=== PATIENT | female | born 1960 | race Caucasian/White ===

== ENCOUNTER 2016-11-24 16:27 | Inpatient (IN) | payer OTHER ==
[~2016-11-24] VITALS: Ht 157.5 cm; Wt 75.7 kg
[~2016-11-24 16:27] MED LIST: ALBU18HF2 IH; ATOR10TA PO; DOCU-270 PO; FERR1TAB44 PO; LITH300C4 PO
--- NOTE | 2016-11-24 16:31 | NUR ---
BIBRA FROM STREET DT CONSTIPATION "I HAS 2 BM TODAY BUT VERY SMALL", NAD NOTE, VSS, WAITING FOR MD FISHER.
[2016-11-24] MEDS ORDERED: TRAMADOL HCL 50 MG TABLET PO ONE (17:30)
[2016-11-24 17:40] LABS: HEMATOCRIT 27 % (33-45); HEMOGLOBIN 9.4 g/dL (11.5-14.8); MEAN CORPUSCULAR HEMOGLOBIN 36 PG (26.0-33.0); MEAN CORPUSCULAR HGB CONC 35 g/dl (31.0-36.0); MEAN CORPUSCULAR VOLUME 105 fL (82-100); PLATELET COUNT (AUTO) 166 /CMM (150-450); RED BLOOD CELL COUNT(AUTO) 2.58 MIL/uL (4.0-5.2); WHITE BLOOD COUNT (AUTO) 11.4 K/uL (4.3-11.0)
[2016-11-24 17:47] LABS: ALBUMIN 1.8 g/dL (3.4-5.0); BILIRUBIN,DIRECT 20.4 mg/dL (0.0-0.2); CALCIUM, SERUM 7.8 mg/dL (8.5-10.1); CREATININE 0.5 mg/dL (0.6-1.3); TOTAL PROTEIN, SERUM 5.3 g/dL (6.4-8.2)
[2016-11-24 17:49] LABS: INR 1.57 (0.87-1.13); PROTHROMBIN TIME 16.3 SECS (9.5-12.7)
[2016-11-24 18:00] LABS: APPEARANCE,URINE Slightly Cloudy (CLEAR); BILIRUBIN,URINE LARGE (NEGATIVE); BLOOD, URINE Negative Ery/uL (NEGATIVE); COLOR,URINE Brown (YELLOW); KETONES,URINE 15 (NEGATIVE); LEUKOCYTE ESTERASE ,URINE Negative (NEGATIVE); NITRITE, URINE Negative (NEGATIVE); PROTEIN,URINE 100 mg/dl (NEGATIVE); UGLUCOSE 100 MG/DL mg/dL (NEGATIVE)
[2016-11-24 18:04] LABS: POTASSIUM 2.2 mmol/L (3.5-5.1)
[2016-11-24] MEDS ORDERED: TRAMADOL HCL 50 MG TABLET ONE (18:23)
[2016-11-24] MEDS ORDERED: POTASSIUM CHLORIDE 20 MEQ TAB.PRT.SR PO ONE ×2 (18:23→18:30)
[2016-11-24] MEDS ORDERED: IV NS 0.9% 1,000 ML BAG IV ONE (18:30)
[2016-11-24 19:02] LABS: BAND % (MANUAL) 2 % (0.0-5.0); LYMPHOCYTES % (MANUAL) 10 % (16-48); MONOCYTES % (MANUAL) 2 % (0-11.0); NEUTROPHILS % (MANUAL) 86 (42-76)
--- NOTE | 2016-11-24 19:04 | NUR ---
US LIVER AT BS
[2016-11-24 19:05] LABS: BACTERIA,URINE Few /HPF (None Seen); RBC,URINE 0-2 /HPF (0-2); SQUAMOUS EPITHELIAL CELL,UR Moderate /HPF (None Seen); WBC,URINE 0-2 /HPF (0-3); YEAST,URINE Few /HPF (None Seen)
[2016-11-24 19:06] LABS: HYALINE CASTS, URINE Moderate /LPF (None Seen)
[2016-11-24] MEDS ORDERED: IV PREMIX 0.45% NS + KCL 1,000 ML IV ONE (19:45)
--- NOTE | 2016-11-24 19:45 | NUR ---
CALLED NURSING SUP. FOR MS BED
--- NOTE | 2016-11-24 19:45 | NUR ---
ANUSHA GALVEZ, RONALDO PEREZ NP ANALYTICS LEAD
[2016-11-24] MEDS ORDERED: PIPERACILLIN /TAZOBACTAM 3.375 G in IV D5W 50 ML IV ONE (20:00)
--- NOTE | 2016-11-24 20:04 | NUR ---
MS 306-1
[2016-11-24] MEDS ORDERED: IOHEXOL-300 100 ML VIAL IV ONE (20:19)
[2016-11-24] MEDS ORDERED: CT SWABBABLE VALVE TRANS SET 1 EA INFUS.SET MC ONE (20:19)
[2016-11-24] MEDS ORDERED: IV NS 0.9% 250 ML IV ONE (20:19)
[2016-11-24] MEDS ORDERED: MORPHINE SULFATE INJ 2 MG/ML DISP.SYRIN ONE (21:23)
[2016-11-24] MEDS ORDERED: ZOLPIDEM TARTRATE 5 MG TABLET PO PRN (22:30)
[2016-11-24] MEDS ORDERED: ACETAMINOPHEN 325 MG TABLET PO PRN (22:30)
[2016-11-24] MEDS ORDERED: MAGNESIUM HYDROXIDE 30 ML UDC PO PRN (22:30)
[2016-11-24] MEDS ORDERED: MAG HYDROX/AL HYDROX/SIMETH 30 ML UDC PO PRN (22:30)
[2016-11-24] MEDS ORDERED: ENOXAPARIN SODIUM 40 MG/0.4 ML DISP.SYRIN SQ SCH (22:30)
[2016-11-24 22:42] VITALS: BP 117/70
--- NOTE | 2016-11-24 22:45 | NUR ---
MS RN NOTE: RECEIVED PATIENT FROM ER, NO ACUTE DISTRESS NOTED. BREATHING EVEN AND UNLABORED, NO SOB NOTED. IV TO LAC IN PLACE, INFUSING 1/2NS WITH 20 MEQ OF KCL AT 100ML/HR. ABDOMEN DISTENDED. ORIENTED PATIENT TO ROOM AND USE OF CALL LIGHT. BED LOCKED AND IN LOWEST POSITION, CALL LIGHT IN REACH. WILL CONTINUE TO MONITOR.
[2016-11-24] MEDS ORDERED: ENOXAPARIN SODIUM 40 MG/0.4 ML DISP.SYRIN SQ ONE (23:02)
[2016-11-25] MEDS: MORPHINE SULFATE INJ 2 MG/ML DISP.SYRIN IV PRN ×3 (01:48→21:02)
--- NOTE | 2016-11-25 02:00 | NUR ---
MS RN NOTE: PATIENT COMPLAINS OF ABDOMINAL PAIN 09/24, MORPHINE 2 MG IV GIVEN PER MD ORDER. WILL CONTINUE TO MONITOR.
[2016-11-25] MEDS ORDERED: ALBUMIN 25% 100 ML IV ONE (04:32)
[2016-11-25] MEDS: ALBUMIN 25% 25 GM in PREMIX 1 EA IV SCH ×3 (04:50→18:06)
--- NOTE | 2016-11-25 05:00 | NUR ---
MS RN NOTE: PATIENT WITH ORDER FOR ALBUMIN 25GRAM IV GIVEN LATE, DUE TO UNABLE TO OBTAIN MEDICATION. NOT STOCKED ON THE FLOOR. HAD TO HAVE STRATEGIC ALLIANCES MANAGER GET MEDICATION, BUT UNABLE TO DO EARLIER DUE TO CODE IN ICU. WILL CONTINUE TO MONITOR.
--- NOTE | 2016-11-25 06:05 | NUR ---
MS RN NOTE: PATIENT RESTING IN BED, NO ACUTE DISTRESS NOTED. BREATHING EVEN AND UNLABORED, NO SOB NOTED. IV TO LAC IN PLACE, INFUSING 1/2NS WITH 20 MEQ OF KCL AT 100ML/HR. BED LOCKED AND IN LOWEST POSITION, CALL LIGHT IN REACH. WILL ENDORSE TO DAY NURSE TO CONTINUE WITH PLAN OF CARE.
[2016-11-25 07:02] LABS: EOSINOPHILS # (AUTO) 0.3 /CMM (0.0-0.7); EOSINOPHILS % (AUTO) 2.3 % (0.0-6.0); HEMATOCRIT 24 % (33-45); HEMOGLOBIN 8.4 g/dL (11.5-14.8); LYMPHOCYTES # (AUTO) 1.1 /CMM (0.8-4.8); LYMPHOCYTES % (AUTO) 9.7 % (20.0-44.0); MEAN CORPUSCULAR HEMOGLOBIN 36 PG (26.0-33.0); MEAN CORPUSCULAR HGB CONC 35 g/dl (31.0-36.0); MEAN CORPUSCULAR VOLUME 105 fL (82-100); MONOCYTES # (AUTO) 1.1 /CMM (0.1-1.30); MONOCYTES % (AUTO) 9.4 % (2.0-12.0); NEUTROPHILS # (AUTO) 9.2 /CMM (1.8-8.9); NEUTROPHILS % (AUTO) 78.6 % (43.0-81.0); PLATELET COUNT (AUTO) 141 /CMM (150-450); RED BLOOD CELL COUNT(AUTO) 2.31 MIL/uL (4.0-5.2); WHITE BLOOD COUNT (AUTO) 11.7 K/uL (4.3-11.0)
[2016-11-25 07:16] LABS: CALCIUM, SERUM 7.2 mg/dL (8.5-10.1); CREATININE 0.4 mg/dL (0.6-1.3); MAGNESIUM 1.6 mg/dL (1.8-2.4); PHOSPHORUS 1.1 mg/dL (2.5-4.9)
--- NOTE | 2016-11-25 07:30 | NUR ---
MS RN AM NOTES: PATIENT IN BED, ASLEEP, AWAKENS TO NAME AND TOUCH, ON ROOM AIR, NO ACUTE DISTRESS NOTED. BREATHING EVEN AND UNLABORED, NO SOB NOTED. IV TO LAC IN PLACE, INFUSING 1/2NS WITH 20 MEQ OF KCL AT 100ML/HR, TO CONSUME. AMBULATORY,SEE NURSING FLOWHSEET FOR SKIN ISSUES. BED LOCKED AND IN LOWEST POSITION, CALL LIGHT IN REACH. WILL CONTINUE TO MONITOR.
[2016-11-25 07:58] LABS: POTASSIUM 2.6 mmol/L (3.5-5.1)
--- NOTE | 2016-11-25 07:59 | NUR ---
MS RN NOTES K = 2.6 - RELAYED TO .
[2016-11-25 08:00] VITALS: BP_SYST 110; BP_SYST 97; BP_DIAS 56; BP_DIAS 67
[2016-11-25] MEDS ORDERED: POTASSIUM CHLORIDE 20 MEQ TAB.PRT.SR PO ONE ×3 (09:30→16:30)
--- NOTE | 2016-11-25 09:30 | NUR ---
MS RN NOTE ADMINISTERED DUE MEDS.
[2016-11-25] MEDS: CYANOCOBALAMIN 100 MCG TABLET PO SCH (09:39)
[2016-11-25] MEDS: SPIRONOLACTONE 25 MG TABLET PO SCH (09:40)
[2016-11-25] MEDS: FUROSEMIDE 40 MG/4 ML VIAL IV SCH (09:40)
[2016-11-25] MEDS: ONDANSETRON HCL/PF 4 MG/2 ML VIAL IVP PRN (09:40)
[2016-11-25] MEDS: FOLIC ACID 1 MG TABLET PO SCH (09:40)
--- NOTE | 2016-11-25 11:08 | NUR ---
Social service consult requested by Med Surg BRITTNEY Cr for homelessness. Pt. is a 56 year old female who was admitted to [facility] for Pancreatitis. SW met with pt. bedside. Pt. is alert and oriented x 3. Pt. appeared disheveled and had a suntan. Pt. stated she and her have been homeless for the past six years and live in shelters at times. Pt. Pt. was mumbling most of her words and SW had to encourage pt. to speak loudly and clearly many times. Pt. drinks vodka with ice water as a chaser at times. Pt's last drink was a couple of days ago. Pt. denies using drugs and smoking cigarettes stating she has asthma. Pt. is linked with services at [facility] at [facility] and her case aide is Gilberto Craft . Pt. receives food stamps and $251 in General relief. [place] [facility] [place] but is willing to take resources. SW to offer pt. resources prior to discharge and two bus tokens. SW is available if needed.
[2016-11-25] MEDS: Magnesium 1GM/D5W 100ML PREMIX 100 ML IV SCH ×2 (11:55→12:41)
--- NOTE | 2016-11-25 11:55 | NUR ---
MS RN NOTES STARTED MAGNESIUM BAG #1
--- NOTE | 2016-11-25 12:41 | NUR ---
MS RN NOTES STARTED MAGNESIUM BAG #2
[2016-11-25 16:00] VITALS: BP 103/66
[2016-11-25] MEDS ORDERED: K PHOS NEUTRAL 250 MG TABLET PO ONE (16:00)
[2016-11-25] MEDS: LACTULOSE 10 G/15 ML UDC (PYXIS) PO SCH (16:59)
[2016-11-25] MEDS: IV NS 0.9% 1,000 ML IV PRN (17:10)
[2016-11-25 18:00] VITALS: BP 103/66
--- NOTE | 2016-11-25 18:06 | NUR ---
MS RN NOTES ALBUMIN 3/3 DOSE STARTED. POTASSIUM PHOSPHATE TO FOLLOW 1/2 TO FOLLOW.
[2016-11-25] MEDS: Potassium Phosphate meq 11 MEQ in IV D5W 100 ML IV SCH ×2 (18:14→20:59)
--- NOTE | 2016-11-25 18:50 | NUR ---
MS RN CLOSING NOTES: PATIENT IN BED, RESTING, ON ROOM AIR, NO ACUTE DISTRESS NOTED. BREATHING EVEN AND UNLABORED, NO SOB NOTED. IV TO LAC IN PLACE, ONGOING POTASSIUM PHOSPHATE AT 34 ML/HR. SITE CLEAR. AMBULATORY,BED LOCKED AND IN LOWEST POSITION, CALL LIGHT IN REACH. CLEAR LIQUID FOR NOW THEN NPO POST MIDNIGHT FOR US GUIDED PARACENTESIS. CONSENT SIGNED. ALL NEEDS MET. NO OTHER SIGNIFICANT CHANGE IN CONDITION. WILL ENDORSE TO NEXT SHIFT FOR GEOVANNY.
--- NOTE | 2016-11-25 19:30 | NUR ---
MS RN NOTE: PATIENT RESTING IN BED, NO ACUTE DISTRESS NOTED. BREATHING EVEN AND UNLABORED, NO SOB NOTED. IV TO LAC IN PLACE. BED LOCKED AND IN LOWEST POSITION, CALL LIGHT IN REACH. WILL CONTINUE TO MONITOR.
[2016-11-25 20:00] VITALS: BP 109/67
[2016-11-25] MEDS: ENOXAPARIN SODIUM 40 MG/0.4 ML DISP.SYRIN SQ SCH (21:09)
--- NOTE | 2016-11-25 21:15 | NUR ---
MS RN NOTE: PATIENT COMPLAINS OF ABDOMINAL PAIN 10/25, MORPHINE 2 MG IV GIVEN PER MD ORDER. WILL CONTINUE TO MONITOR.
[2016-11-26] MEDS: IV NS 0.9% 1,000 ML IV PRN (01:06)
[2016-11-26] MEDS: MORPHINE SULFATE INJ 2 MG/ML DISP.SYRIN IV PRN ×4 (02:44→22:37)
--- NOTE | 2016-11-26 02:47 | NUR ---
MS RN NOTE: PATIENT COMPLAINS OF ABDOMINAL PAIN 10/25, MORPHINE 2 MG IV GIVEN PER MD ORDER. WILL CONTINUE TO MONITOR.
--- NOTE | 2016-11-26 06:10 | NUR ---
MS RN NOTE: PATIENT RESTING IN BED, NO ACUTE DISTRESS NOTED. BREATHING EVEN AND UNLABORED, NO SOB NOTED. IV TO LAC IN PLACE. PATIENT NPO SINCE MIDNIGHT FOR MRCP AND US GUIDED PARACENTESIS TODAY, CONSENTS SIGNED AND IN CHART. BED LOCKED AND IN LOWEST POSITION, CALL LIGHT IN REACH. WILL ENDORSE TO DAY NURSE TO CONTINUE WITH PLAN OF CARE.
--- NOTE | 2016-11-26 06:11 | NUR ---
MRI APPROVED BELLA FUENTES
[2016-11-26 06:47] LABS: CALCIUM, SERUM 7.1 mg/dL (8.5-10.1); CREATININE 0.3 mg/dL (0.6-1.3); MAGNESIUM 1.6 mg/dL (1.8-2.4); PHOSPHORUS 1.1 mg/dL (2.5-4.9); POTASSIUM 3.3 mmol/L (3.5-5.1)
--- NOTE | 2016-11-26 07:30 | NUR ---
RN OPENING NOTES RECEIVED PT. IN BED A&OX3. BREATHING EVEN, AND UNLABORED ON ROOM AIR. NO S/S OF ACUTE DISTRESS. IV FLUIDS RUNNING NEAR BEDSIDE THROUGH PATENT IV ACCESS. PT. IS NPO AWAITING MRCP DIAGNOSTIC TEST. 2 SIDE RAILS UP, BED IS IN LOW LOCKED POSITION, AND INSTRUCTED PT. TO USE CALL LIGHT FOR ASSISTANCE.
--- NOTE | 2016-11-26 08:19 | NUR ---
SW contacted pt's home health care case manager Gilberto Craft at [facility] at [facility] per pt's request and left him a voicemail message informing him that pt. is admitted to [facility].
[2016-11-26] MEDS: LACTULOSE 10 G/15 ML UDC (PYXIS) PO SCH ×2 (09:00→12:30)
[2016-11-26] MEDS: SPIRONOLACTONE 25 MG TABLET PO SCH ×2 (09:00→12:27)
[2016-11-26] MEDS: FUROSEMIDE 40 MG/4 ML VIAL IV SCH (09:00)
[2016-11-26] MEDS: CYANOCOBALAMIN 100 MCG TABLET PO SCH ×2 (09:00→12:56)
[2016-11-26] MEDS: FOLIC ACID 1 MG TABLET PO SCH ×2 (09:00→12:27)
[2016-11-26] MEDS: Magnesium 1GM/D5W 100ML PREMIX 100 ML IV SCH ×2 (12:33→13:53)
[2016-11-26] MEDS: PENTOXIFYLLINE 400 MG TABLET.SA PO SCH ×2 (13:59→17:33)
[2016-11-26] MEDS ORDERED: PHYTONADIONE INJ 10 MG/1 ML AMPUL SQ ONE (15:00)
[2016-11-26] MEDS: POTASSIUM CL. PREMIX PERIPHER. 50 ML IV SCH ×2 (15:12→17:33)
--- NOTE | 2016-11-26 15:22 | NUR ---
COSME received a call back from pt's showcase trimmer Gilberto Craft at [facility] from [facility] . Gilberto informed SW that he offered placement to pt. several times but she has continuously declined placement. Gilberto informed SW that pt. has an appointment with her psychiatrist on December 02 at 11:30AM at [facility] and for SW to remind the patient. COSME met with pt. bedside. COSME informed pt. she spoke with her showcase trimmer Gilberto who wanted to inform her that she has an appointment with the psychiatrist on 12/02 at 11:30AM. COSME confirmed with pt. regarding attending to her appointment. COSME also gave pt. list of following resources such as: List of Homeless shelters, list of Food resources, List of mental health clinics, list of medical centers and clinics which include vision and dental and list alcohol treatment programs. Pt. accepted the resources and was appreciative of SW giving it to her. SW is available if needed. No other social service needs are requested at this time.
--- NOTE | 2016-11-26 15:47 | NUR ---
RN NOTES PT. WILL MOVE TO ROOM 308 BED 1.
[2016-11-26 16:00] VITALS: BP 123/74
[2016-11-26] MEDS: ONDANSETRON HCL/PF 4 MG/2 ML VIAL IVP PRN (18:06)
--- NOTE | 2016-11-26 19:00 | NUR ---
MS RN OPENING NOTES PATIENT RESTING IN BED A/O X 2-3, NO ACUTE DISTRESS NOTED. BREATHING EVEN AND UNLABORED, NO SOB NOTED. SAFETY MEASURES IN PLACE, BED LOCKED AND IN LOWEST POSITION, CALL LIGHT IN REACH. WILL CONTINUE TO MONITOR.
--- NOTE | 2016-11-26 19:30 | NUR ---
RN CLOSING NOTES PT. IN NW ROOM 308 BED 1, A&OX3. BREATHING EVEN, AND UNLABORED ON ROOM AIR. NOW ON CLEAR LIQUID DIET. NO S/S OF ACUTE DISTRESS. IV FLUIDS RUNNING NEAR BEDSIDE THROUGH PATENT IV ACCESS. 2 SIDE RAILS UP, BED IS IN LOW LOCKED POSITION, AND INSTRUCTED PT. TO USE CALL LIGHT FOR ASSISTANCE. WILL ENDORSE REPORT TO NURSE.
[2016-11-26] MEDS: POTASSIUM PHOSPHATE MM 7.5 MMOL in IV D5W 100 ML IV SCH ×2 (19:50→22:35)
[2016-11-26 20:00] VITALS: BP 107/75
[2016-11-26] MEDS: ENOXAPARIN SODIUM 40 MG/0.4 ML DISP.SYRIN SQ SCH (21:09)
--- NOTE | 2016-11-26 21:29 | NUR ---
RN NOTES PLACED A CALL TO HOSPITALIST SPOKE TO DR PEREZ AND RELAYED IV FLUIDS STILL ACTIVE ORDER PER DR. PEREZ DC IV FLUIDS GIVEN CONCERN OF LE EDEMA NOTED AND CARRIED OUT Addendum: 11/26/16 at 2130 by ALISSA SUAREZ RN DC IV FLUIDS NS RUNNING AT 125CC/HR NOTED AND CARRIED OUT
[2016-11-27] MEDS: MORPHINE SULFATE INJ 2 MG/ML DISP.SYRIN IV PRN ×5 (02:57→22:04)
--- NOTE | 2016-11-27 06:20 | NUR ---
MS RN CLOSING NOTES PATIENT COMFORTABLY ASLEEP AND EASILY AWAKEN, HEAD OF BED ELEVATED FOR BETTER LUNG EXPANSION. TOLERATING ROOM AIR 02 SAT 98% IV SITE NO S/S OF INFILTRATED PATENT AND FLUSHED, RESPIRATIONS EVEN AND UNLABORED. NO S/S OF ACUTE DISTRESS, NO SOB, SKIN WARM AND DRY TO TOUCH, AFEBRILE, ALL NURSING CARE RENDERED, NEEDS ATTENDED AND ANTICIPATED, KEPT CLEAN AND DRY AND COMFORTABLE, GOOD SKIN CARE PROVIDED.FREQUENT VISUAL CHECK DONE FOR SAFETY EVERY 2 HOURS. SAFE HAZARD FREE ENVIRONMENT PROVIDED. CALL LIGHT WITHIN EASY TO REACH, ON LOW BED AT ALL TIMES TO ENSURE SAFETY, WILL ENDORSE TO THE NEXT SHIFT CONTINUE PLAN OF CARE.
[2016-11-27 06:40] LABS: EOSINOPHILS # (AUTO) 0.3 /CMM (0.0-0.7); HEMATOCRIT 27 % (33-45); HEMOGLOBIN 9.1 g/dL (11.5-14.8); LYMPHOCYTES # (AUTO) 1.5 /CMM (0.8-4.8); LYMPHOCYTES % (AUTO) 10.7 % (20.0-44.0); MEAN CORPUSCULAR HEMOGLOBIN 37 PG (26.0-33.0); MEAN CORPUSCULAR HGB CONC 34 g/dl (31.0-36.0); MEAN CORPUSCULAR VOLUME 107 fL (82-100); MONOCYTES # (AUTO) 1.5 /CMM (0.1-1.30); MONOCYTES % (AUTO) 10.8 % (2.0-12.0); NEUTROPHILS # (AUTO) 10.7 /CMM (1.8-8.9); NEUTROPHILS % (AUTO) 76.5 % (43.0-81.0); PLATELET COUNT (AUTO) 169 /CMM (150-450); RDW COEFFICIENT OF VARIATION 21.9 (11.5-15.0); RED BLOOD CELL COUNT(AUTO) 2.47 MIL/uL (4.0-5.2); WHITE BLOOD COUNT (AUTO) 14.1 K/uL (4.3-11.0)
[2016-11-27 06:49] LABS: INR 1.7 (0.87-1.13); PROTHROMBIN TIME 17.8 SECS (9.5-12.7)
[2016-11-27 06:51] LABS: CALCIUM, SERUM 7.3 mg/dL (8.5-10.1); CREATININE 0.4 mg/dL (0.6-1.3); MAGNESIUM 1.9 mg/dL (1.8-2.4); PHOSPHORUS 1.3 mg/dL (2.5-4.9); POTASSIUM 3.5 mmol/L (3.5-5.1)
--- NOTE | 2016-11-27 07:50 | NUR ---
RN MS NOTES PATIENT A/OX 3, C/O ABDOMINAL PAIN /10, MORPHINE GIVEN, ABDOMEN DISTENDED NOTED, NEEDS ATTENDED AND MET, SAFETY MEASURES IN PLACED, CALL LIGHT WITHIN REACH, WILL CONTINUE TO MONITOR.
[2016-11-27 08:00] VITALS: BP 108/68
[2016-11-27] MEDS: SPIRONOLACTONE 25 MG TABLET PO SCH (08:24)
[2016-11-27] MEDS: CYANOCOBALAMIN 100 MCG TABLET PO SCH (08:24)
[2016-11-27] MEDS: PENTOXIFYLLINE 400 MG TABLET.SA PO SCH ×2 (08:24→16:44)
[2016-11-27] MEDS: FUROSEMIDE 40 MG/4 ML VIAL IV SCH (08:24)
[2016-11-27] MEDS: FOLIC ACID 1 MG TABLET PO SCH (08:24)
[2016-11-27] MEDS: LACTULOSE 10 G/15 ML UDC (PYXIS) PO SCH (08:24)
[2016-11-27 09:30] LABS: BAND % (MANUAL) 4 % (0.0-5.0); EOSINOPHILS % (MANUAL) 3 % (0-4); LYMPHOCYTES % (MANUAL) 4 % (16-48); MONOCYTES % (MANUAL) 11 % (0-11.0); NEUTROPHILS % (MANUAL) 78 (42-76)
[2016-11-27] MEDS ORDERED: K PHOS NEUTRAL 250 MG TABLET PO ONE (11:30)
[2016-11-27 16:00] VITALS: BP 110/71
--- NOTE | 2016-11-27 18:45 | NUR ---
RN MS NOTES PATIENT SEEN BY DR. HAIR AND ORDERED US GUIDED PARACENTESIS FOR TOMORROW AND TO SEND PERITONEAL FLUIDS TO LAB FOR TESTING, PATIENT WILL BE NPO AFTER MIDNIGHT, PATIENT AWARE AND SIGNED CONSENT, PATIENT ALERT AND ORIENTED, NO SIGNIFICANT CHANGE THIS SHIFT, PIV ON LEFT FA PATENT AND FLUSHES WELL, KEPT PATIENT COMFORTABLE, CALL LIGHT WITHIN REACH, SAFETY MEASURES IN PLACED, WILL ENDORSE TO AIRPLANE PILOT SUPERVISOR FOR GEOVANNY.
--- NOTE | 2016-11-27 19:35 | NUR ---
RN INITIAL NOTES: PT IN BED, AWAKE, A/O X3 ON RA RESPIRATION EVEN AND UNLABORED, PT JUST RECEIVED PAIN MEDICATION NOT TOO LONG AGO, STATED HER PAIN IS TOLERABLE, PT HAS LEFT FA IV ACCESS PATENT AND FLUSHING WELL, ON HL, PT ABLE TO USE BED SIDE COMMODE. PT FOR US GUIDED PARACENTESIS IN AM 11/28/16 CONSENT SIGNED BY THE PT. SAFETY PRECAUTIONS FOR FALL INITIATED CALL LIGHT IN REACH, WILL CONTINUE TO MONITOR.
[2016-11-27] MEDS: ONDANSETRON HCL/PF 4 MG/2 ML VIAL IVP PRN (19:36)
--- NOTE | 2016-11-27 19:36 | NUR ---
PRN ZOFRAN: PT VOMITED TWICE, ALSO C/O NAUSEA, PRN ZOFRAN 4MG IVP ADMINISTERED TO THE PT AT THIS TIME, EDUCATE PT TO REFRAIN FROM EATING FOR AT LEAST 1-2HRS, THEN IF NO VOMITING FOR THE SAID ALLOWANCE TIME, WILL RESTART PT ON ICE CHIPS, THEN WATER. PT AGREE, WILL CONTINUE TO MONITOR AND REASSESS
[2016-11-27 20:00] VITALS: BP 108/67
[2016-11-27 20:24] VITALS: BP 108/67
[2016-11-27] MEDS: ENOXAPARIN SODIUM 40 MG/0.4 ML DISP.SYRIN SQ SCH (21:00)
--- NOTE | 2016-11-27 22:04 | NUR ---
PRN MORPHINE: PT C/O 10/25 ABDOMINAL PAIN REQUESTING FOR MORPHINE, PRN MORPHINE 2MG IVP ADMINISTERED TO THE PT AT THIS TIME, EDUCATE PT REGARDING MEDICATION ASUNCION EFFECT, WILL CONTINUE TO MONITOR AND REASSESS
--- NOTE | 2016-11-27 22:36 | NUR ---
HELD LOVENOX PER MD: PT WILL HAVE US GUIDED PARACENTESIS IN AM 11/28/16, PER MD TO HOLD LOVENOX DOSE FOR TONIGHT
[2016-11-28 02:00] VITALS: BP 104/66
[2016-11-28] MEDS: MORPHINE SULFATE INJ 2 MG/ML DISP.SYRIN IV PRN ×4 (02:08→20:24)
--- NOTE | 2016-11-28 02:09 | NUR ---
PRN MORPHINE: PT C/O ABDOMINAL PAIN 10/25 REQUESTING FOR MORPHINE, PRN MORPHINE 2MG IVP ADMINISTERED TO THE PT AT THIS TIME, WILL CONTINUE TO MONITOR AND REASSESS
--- NOTE | 2016-11-28 03:54 | NUR ---
EKG: EKG DONE AT BED SIDE BY RT ETHAN EKG PER PROTOCOL FOR AGE >50, FOR PT WHO WILL UNDERGO PROCEDURE
[2016-11-28 06:26] LABS: EOSINOPHILS # (AUTO) 0.1 /CMM (0.0-0.7); EOSINOPHILS % (AUTO) 0.9 % (0.0-6.0); HEMATOCRIT 28 % (33-45); HEMOGLOBIN 9.4 g/dL (11.5-14.8); LYMPHOCYTES # (AUTO) 1.3 /CMM (0.8-4.8); LYMPHOCYTES % (AUTO) 9.1 % (20.0-44.0); MEAN CORPUSCULAR HEMOGLOBIN 37 PG (26.0-33.0); MEAN CORPUSCULAR HGB CONC 34 g/dl (31.0-36.0); MEAN CORPUSCULAR VOLUME 108 fL (82-100); MONOCYTES # (AUTO) 1.4 /CMM (0.1-1.30); MONOCYTES % (AUTO) 9.9 % (2.0-12.0); NEUTROPHILS # (AUTO) 11.6 /CMM (1.8-8.9); NEUTROPHILS % (AUTO) 80.1 % (43.0-81.0); PLATELET COUNT (AUTO) 169 /CMM (150-450); RDW COEFFICIENT OF VARIATION 22.7 (11.5-15.0); RED BLOOD CELL COUNT(AUTO) 2.56 MIL/uL (4.0-5.2); WHITE BLOOD COUNT (AUTO) 14.5 K/uL (4.3-11.0)
[2016-11-28 06:46] LABS: INR 1.67 (0.87-1.13); PROTHROMBIN TIME 17.5 SECS (9.5-12.7)
[2016-11-28 06:47] LABS: ALBUMIN 2.1 g/dL (3.4-5.0); CALCIUM, SERUM 7.5 mg/dL (8.5-10.1); CREATININE 0.4 mg/dL (0.6-1.3); MAGNESIUM 1.6 mg/dL (1.8-2.4); PHOSPHORUS 2.1 mg/dL (2.5-4.9); POTASSIUM 3.4 mmol/L (3.5-5.1)
[2016-11-28 06:54] LABS: BILIRUBIN,TOTAL 27.9 mg/dL (0.2-1.0)
[2016-11-28 06:55] LABS: BILIRUBIN,DIRECT 22.7 mg/dL (0.0-0.2)
--- NOTE | 2016-11-28 07:00 | NUR ---
RN CLOSING NOTES: PT IN BED, AWAKE, ON RA, RESPIRATION EVEN AND UNLABORED, RFA IV ACCESS REMAINS PATENT AND FLUSHING WELL, ON HL. PT REMAINS NPO X MEDS, FOR US GUIDED PARACENTESIS TODAY 11/28/16 CONSENT SECURED, CHECKLIST COMPLETED, FLUID ANALYSIS TO BE SEND FOR LAB FOR EXAMINIATION/TEST. VS REMAINS STABLE, NEEDS ATTENDED, SAFETY PRECAUTIONS FOR FALL REMAINS ENGAGED, CALL LIGHT IN REACH, WILL ENDORSE TO DAY RN FOR GEOVANNY
--- NOTE | 2016-11-28 07:15 | NUR ---
Initial RN Notes: Patient resting in bed. No signs of distress. Non-labored breathing on room air. Patient alert oriented x3. IV on left forearm patent and intact. Patient denies pain at the moment.Bed in lowest locked position. Call light within reach. Will continue to monitor.
[2016-11-28 07:28] LABS: TOTAL PROTEIN, SERUM 4.9 g/dL (6.4-8.2)
[2016-11-28 08:00] VITALS: BP 116/68
[2016-11-28] MEDS ORDERED: DEXTROSE 50%-WATER 50 ML DISP.SYRIN IVP ONE ×2 (08:30)
--- NOTE | 2016-11-28 08:40 | NUR ---
RN NOTES: 0743: PATIENT NOTED TO BE SLIGHTLY DIAPHORETIC. NO SOB. PATIENT COMPLAINING OF DIZZINESS. VS WNL. BLOOD SUGAR ASSESSED AND NOTED TO BE 68. PATIENT NPO DUE TO SCHEDULED PARACENTESIS TODAY. LEONOR MALONE NP, WHO ORDERED TO GIVE 1/2 AMPULE OF D50 IV. ADMINISTERED MEDICATION. BLOOD SUGAR REASSESSED AND NOTED TO BE 126 AT 0838. PATIENT STATES FEELING BETTER.
[2016-11-28] MEDS ORDERED: POTASSIUM CHLORIDE 20 MEQ POWDER PACKET PO ONE (09:00)
[2016-11-28] MEDS: FUROSEMIDE 40 MG/4 ML VIAL IV SCH (09:18)
[2016-11-28] MEDS: FOLIC ACID 1 MG TABLET PO SCH (09:30)
[2016-11-28] MEDS: LACTULOSE 10 G/15 ML UDC (PYXIS) PO SCH (09:30)
[2016-11-28] MEDS: SPIRONOLACTONE 25 MG TABLET PO SCH (09:31)
[2016-11-28] MEDS: CYANOCOBALAMIN 100 MCG TABLET PO SCH (09:31)
[2016-11-28 09:39] LABS: LYMPHOCYTES % (MANUAL) 3 % (16-48); MONOCYTES % (MANUAL) 7 % (0-11.0); NEUTROPHILS % (MANUAL) 90 (42-76)
[2016-11-28] MEDS: PENTOXIFYLLINE 400 MG TABLET.SA PO SCH ×2 (10:18→17:00)
[2016-11-28] MEDS: Magnesium 1GM/D5W 100ML PREMIX 100 ML IV SCH ×2 (10:36→11:50)
[2016-11-28] MEDS ORDERED: K PHOS NEUTRAL 250 MG TABLET PO ONE (12:00)
--- NOTE | 2016-11-28 13:40 | NUR ---
RN MS NOTES: PARACENTESIS DONE. OUTPUT REPORTED TO BE 1500 ML. FLUID OUTPUT DELIVERED TO LAB
--- NOTE | 2016-11-28 15:33 | NUR ---
RN NOTES: VAHE MALONE, ORDERED THAT PATIENT RESUME 2 GM NA DIET TOLERATED
[2016-11-28 16:00] VITALS: BP 108/69
--- NOTE | 2016-11-28 18:41 | NUR ---
CLOSING RN NOTES: Patient resting in bed. No signs of distress. Non-labored breathing on room air. Patient alert oriented x3. Patient denies dizziness. IV on left forearm patent and intact. Patient denies pain at the moment.Bed in lowest locked position. Call light within reach. Will endorse to next shift.
--- NOTE | 2016-11-28 18:42 | NUR ---
CLOSING RN NOTES: Patient resting in bed. No signs of distress. Non-labored breathing on room air. Patient alert oriented x3. Patient denies dizziness. IV on left forearm patent and intact. Patient denies pain at the moment.Bed in lowest locked position. Call light within reach. During shift, patient encouraged to turn and reposition every 2 hours. Skin kept clean and dry. Will endorse to next shift.
--- NOTE | 2016-11-28 19:32 | NUR ---
RN INITIAL NOTES: PT IN BED, AWAKE, A/O X3 ON RA RESPIRATION EVEN AND UNLABORED, C/O ABDOMINAL PAIN 09/24, PT S/P US GUIDED PARACENTESIS TODAY 11/28/16 WITH 1500ML OUTPUT, PT HAS LEFT FA IV ACCESS PATENT AND FLUSHING WELL, ON HL, PT ABLE TO USE BED SIDE COMMODE. SAFETY PRECAUTIONS FOR FALL INITIATED CALL LIGHT IN REACH, WILL CONTINUE TO MONITOR.
[2016-11-28 20:00] VITALS: BP 99/64
[2016-11-28] MEDS: ENOXAPARIN SODIUM 40 MG/0.4 ML DISP.SYRIN SQ SCH (20:25)
--- NOTE | 2016-11-28 20:26 | NUR ---
PRN MORPHINE: PT C/O 09/24 ABDOMINAL PAIN REQUESTING FOR MORPHINE, PRN MORPHINE 2MG IVP ADMINISTERED TO THE PT AT THIS TIME, EDUCATE PT REGARDING MEDICATION ASUNCION EFFECT, WILL CONTINUE TO MONITOR AND REASSESS, ALSO PLACED ON 2L VIA NC PT GETTING MORPHINE Q4HRS PEN NEEDED FOR PAIN MNGT
[2016-11-29 00:30] VITALS: BP 119/66
[2016-11-29] MEDS: MORPHINE SULFATE INJ 2 MG/ML DISP.SYRIN IV PRN ×5 (00:34→23:22)
--- NOTE | 2016-11-29 00:34 | NUR ---
PRN MORPHINE: PT C/O 09/24 ABDOMINAL PAIN REQUESTING FOR MORPHINE, PRN MORPHINE 2MG IVP ADMINISTERED ORDERED, WILL CONTINUE TO MONITOR AND REASSESS
[2016-11-29 04:30] VITALS: BP 109/75
--- NOTE | 2016-11-29 04:36 | NUR ---
PRN MORPHINE: PT C/O ABDOMINAL PAIN 09/24 REQUESTING FOR MORPHINE, PRN MORPHINE 2MG IVP ADMINISTERED TO THE PT AT THIS TIME, WILL CONTINUE TO MONITOR AND REASSESS
--- NOTE | 2016-11-29 06:40 | NUR ---
RN CLOSING NOTES: PT IN BED, AWAKE, ON2L VIA NC, RESPIRATION EVEN AND UNLABORED, IV ACCESS REMAINS PATENT AND FLUSHING WELL, ON NS AT TKO. PT REMAINS CLEAR LIQUIDS, TOLERATING PO INTAKE WELL, NO S/S OF BLEEDING NOTED, NO S/S OF WITHDRAWALS, AWAITING RESULT OF BODY FLUID ANALYSIS, VS REMAINS STABLE, NEEDS ATTENDED, SAFETY PRECAUTIONS FOR FALL REMAINS ENGAGED, CALL LIGHT IN REACH, WILL ENDORSE TO DAY RN FOR GEOVANNY
[2016-11-29 06:43] LABS: CALCIUM, SERUM 7.5 mg/dL (8.5-10.1); CREATININE 0.5 mg/dL (0.6-1.3); MAGNESIUM 1.8 mg/dL (1.8-2.4); PHOSPHORUS 1.6 mg/dL (2.5-4.9); POTASSIUM 3.2 mmol/L (3.5-5.1)
--- NOTE | 2016-11-29 07:17 | NUR ---
Initial RN Notes: Patient resting in bed. No signs of distress. Non-labored breathing on room air. Patient alert oriented x3. IV on left forearm patent and intact. Patient denies pain at the moment.Bed in lowest locked position, and call light within reach. Will continue to monitor.
[2016-11-29 08:00] VITALS: BP 100/61
[2016-11-29] MEDS ORDERED: POTASSIUM CHLORIDE 20 MEQ POWDER PACKET GT ONE (09:00)
[2016-11-29] MEDS: LACTULOSE 10 G/15 ML UDC (PYXIS) PO SCH (10:08)
[2016-11-29] MEDS: SPIRONOLACTONE 25 MG TABLET PO SCH (10:09)
[2016-11-29] MEDS: FOLIC ACID 1 MG TABLET PO SCH (10:09)
[2016-11-29] MEDS: CYANOCOBALAMIN 100 MCG TABLET PO SCH (10:09)
[2016-11-29] MEDS: PENTOXIFYLLINE 400 MG TABLET.SA PO SCH ×2 (10:10→16:10)
[2016-11-29] MEDS: FUROSEMIDE 40 MG/4 ML VIAL IV SCH (10:11)
--- NOTE | 2016-11-29 10:15 | NUR ---
RN NOTES: PATIENT REFUSED MEDICATIONS EARLIER STATING SHE WANTED TO REST. AGREED TO TAKE THE POTASSIUM. OFFERED MULTIPLE TIMES. PATIENT AGREED TO TAKE THEM NOW. SPOKE TO AMADEO MALONE NP. HE IS AWARE OF PATIENT'S VITAL SIGNS AND LABS. HE ORDERED TO CONTINUE HER MEDICATIONS
[2016-11-29] MEDS ORDERED: NEUTRA PHOS 1 POWD.PACKET NG ONE (13:00)
--- NOTE | 2016-11-29 13:29 | NUR ---
RN NOTES: 1035: PATIENT HAD A MODERATE BOWEL MOVEMENT: TARRY WATERY STOOLS WITH BRIGHT RED BLOOD NOTED. NORMOACTIVE BOWEL SOUNDS NOTED. NO SIGNS OF DISTRESS NOTED. PATIENT WITH NONLABORED BREATHING ON ROOM AIR. VS WITHIN NORMAL RANGE. PATIENT DENIES PAIN AT THE RECTUM WELL ABDOMINAL PAIN. VAHE MALONE, NOTIFIED OF THIS AND OF RECENT LAB RESULTS. MANAGER PRODUCT ORDERED TO COLLECT STOOL FOR OCCULT BLOOD. I WAS UNABLE TO COLLECT THE STOOL DUE TO THE WATERY CONSISTENCY OF THE STOOL. WILL ATTEMPT AGAIN. 12:30- PATIENT HAD 3 OTHER WATERY BMS WITH A TOTAL 500 CC OF LIQUID BRIGHT RED. PATIENT ASSESSED, NO DISTRESS. VAHE MALONE, NOTIFIED AGAIN. HE ORDERED TO HOLD THE LOVENOX FOR TONIGHT, CBC TOMORROW, AND GIVE PANTOPRAZOLE 40 MG PO BID
--- NOTE | 2016-11-29 14:41 | NUR ---
RN MS NOTES: INFORMED AMADEO MALONE NP, THAT PATIENT HAD AN OVERALL BLOOD LESS OF 700 CC TODAY. HANDS HANGER ORDERED TO DO A STAT CBC AND PT/INR.
[2016-11-29 15:10] LABS: EOSINOPHILS # (AUTO) 0.3 /CMM (0.0-0.7); EOSINOPHILS % (AUTO) 2.4 % (0.0-6.0); HEMATOCRIT 27 % (33-45); HEMOGLOBIN 8.9 g/dL (11.5-14.8); LYMPHOCYTES # (AUTO) 1.1 /CMM (0.8-4.8); LYMPHOCYTES % (AUTO) 8.8 % (20.0-44.0); MEAN CORPUSCULAR HEMOGLOBIN 36 PG (26.0-33.0); MEAN CORPUSCULAR HGB CONC 34 g/dl (31.0-36.0); MEAN CORPUSCULAR VOLUME 108 fL (82-100); MONOCYTES # (AUTO) 1.1 /CMM (0.1-1.30); MONOCYTES % (AUTO) 9.1 % (2.0-12.0); NEUTROPHILS % (AUTO) 79.7 % (43.0-81.0); PLATELET COUNT (AUTO) 199 /CMM (150-450); RDW COEFFICIENT OF VARIATION 21.9 (11.5-15.0); RED BLOOD CELL COUNT(AUTO) 2.46 MIL/uL (4.0-5.2); WHITE BLOOD COUNT (AUTO) 12.6 K/uL (4.3-11.0)
[2016-11-29 16:00] VITALS: BP 101/61
[2016-11-29 16:14] LABS: INR 1.47 (0.87-1.13); PROTHROMBIN TIME 15.4 SECS (9.5-12.7)
[2016-11-29 18:13] LABS: BAND % (MANUAL) 8 % (0.0-5.0); LYMPHOCYTES % (MANUAL) 3 % (16-48); MONOCYTES % (MANUAL) 8 % (0-11.0); NEUTROPHILS % (MANUAL) 81 (42-76)
--- NOTE | 2016-11-29 18:42 | NUR ---
Closing RN Notes: Patient resting in bed. No signs of distress. Non-labored breathing on room air. Patient alert oriented x3. IV on left forearm patent and intact. Bed in lowest locked position, and call light within reach. Patient had an overall blood loss of 900ml. WASHER HAND aware, notified of CBC and PT/INR results. No new orders. CBC to be repeated tomorrow. Will endorse to next shift.
--- NOTE | 2016-11-29 19:16 | NUR ---
RN MS NOTES: Patient complained of severe 8/10 pain on back and abdomen that is aching. Morphine administered. No sob. No signs of distress. VS WNL
--- NOTE | 2016-11-29 19:30 | NUR ---
MS RN NOTE RECEIVED PATIENT AWAKE AND ALERT WITH PERIODS OF CONFUSION. ABLE TO MAKE NEEDS KNOWN. NO RESPIRATORY DISTRESS OR SOB NOTED. IV SITE INTACT, WITH NO REDNESS NOTED. BED LOCKED AND IN LOWEST POSITION. SIDE RAILS UP, CALL LIGHT WITHIN REACH. WILL CONTINUE TO MONITOR.
[2016-11-29 20:00] VITALS: BP 100/54
[2016-11-29] MEDS: PANTOPRAZOLE 40 MG TABLET.DR PO SCH (21:00)
[2016-11-29] MEDS: ENOXAPARIN SODIUM 40 MG/0.4 ML DISP.SYRIN SQ SCH (21:00)
[2016-11-29 22:00] VITALS: BP 100/54
[2016-11-30] MEDS: MORPHINE SULFATE INJ 2 MG/ML DISP.SYRIN IV PRN ×5 (04:56→22:17)
[2016-11-30 06:33] LABS: EOSINOPHILS # (AUTO) 0.3 /CMM (0.0-0.7); EOSINOPHILS % (AUTO) 1.9 % (0.0-6.0); HEMATOCRIT 23 % (33-45); HEMOGLOBIN 7.7 g/dL (11.5-14.8); LYMPHOCYTES # (AUTO) 0.7 /CMM (0.8-4.8); LYMPHOCYTES % (AUTO) 5.2 % (20.0-44.0); MEAN CORPUSCULAR HEMOGLOBIN 36 PG (26.0-33.0); MEAN CORPUSCULAR HGB CONC 34 g/dl (31.0-36.0); MEAN CORPUSCULAR VOLUME 107 fL (82-100); MONOCYTES # (AUTO) 1.6 /CMM (0.1-1.30); NEUTROPHILS # (AUTO) 10.8 /CMM (1.8-8.9); NEUTROPHILS % (AUTO) 80.9 % (43.0-81.0); PLATELET COUNT (AUTO) 176 /CMM (150-450); RDW COEFFICIENT OF VARIATION 20.7 (11.5-15.0); WHITE BLOOD COUNT (AUTO) 13.3 K/uL (4.3-11.0)
--- NOTE | 2016-11-30 06:34 | NUR ---
MS RN NOTE PATIENT STABLE. ALL NEEDS MET AND ATTENDED TO. NO PAIN OR DISCOMFORT. WILL ENDORSE TO DAY SHIFT FOR GEOVANNY.
[2016-11-30 07:03] LABS: CALCIUM, SERUM 7.6 mg/dL (8.5-10.1); CREATININE 0.6 mg/dL (0.6-1.3); PHOSPHORUS 2.4 mg/dL (2.5-4.9); POTASSIUM 3.8 mmol/L (3.5-5.1)
--- NOTE | 2016-11-30 07:10 | NUR ---
RN NOTES PT IS IN BED, RESTING COMFORTABLY. PT ON 2L O2, RESPIRATIONS ARE EVEN AND UNLABORED. IV ON LFA, INTACT AND PATENT. SAFETY MEASURES ARE IN PLACE, CALL LIGHT IS IN REACH. WILL CONTINUE TO MONITOR.
[2016-11-30 08:00] VITALS: BP 103/57
[2016-11-30] MEDS: PANTOPRAZOLE 40 MG TABLET.DR PO SCH ×2 (08:54→20:14)
[2016-11-30] MEDS: PENTOXIFYLLINE 400 MG TABLET.SA PO SCH ×2 (08:54→17:09)
[2016-11-30] MEDS: LACTULOSE 10 G/15 ML UDC (PYXIS) PO SCH (08:54)
[2016-11-30] MEDS: FOLIC ACID 1 MG TABLET PO SCH (08:54)
[2016-11-30] MEDS: CYANOCOBALAMIN 100 MCG TABLET PO SCH (08:54)
[2016-11-30] MEDS: FUROSEMIDE 40 MG/4 ML VIAL IV SCH (08:54)
[2016-11-30] MEDS: SPIRONOLACTONE 25 MG TABLET PO SCH (08:54)
[2016-11-30 10:15] LABS: EOSINOPHILS % (MANUAL) 1 % (0-4); LYMPHOCYTES % (MANUAL) 4 % (16-48); MONOCYTES % (MANUAL) 1 % (0-11.0); NEUTROPHILS % (MANUAL) 94 (42-76)
[2016-11-30] MEDS ORDERED: K PHOS NEUTRAL 250 MG TABLET PO ONE (12:00)
[2016-11-30 14:05] VITALS: BP 96/55
[2016-11-30 14:30] VITALS: BP 110/60
--- NOTE | 2016-11-30 15:24 | NUR ---
COSME and medical case worker Luna met with pt. to discuss discharge plan since pt. informed CLINICAL EXERCISE SPECIALIST Valente that she did not want to go back to the streets. Pt. confirmed with COSME stating she did not want to go back to the street and wanted to find placement. COSME informed pt. to call her medical case worker Gilberto Craft at [facility] who can assist her in finding placement. Pt. stated she will call Gilberto. COSME encouraged pt. to call him today.
[2016-11-30 16:00] VITALS: BP 112/58
[2016-11-30 18:15] LABS: BASOPHILS # (AUTO) 0.1 /CMM (0.0-0.2); BASOPHILS % (AUTO) 0.8 % (0.0-2.0); EOSINOPHILS # (AUTO) 0.1 /CMM (0.0-0.7); EOSINOPHILS % (AUTO) 0.9 % (0.0-6.0); HEMATOCRIT 29 % (33-45); HEMOGLOBIN 9.7 g/dL (11.5-14.8); LYMPHOCYTES # (AUTO) 1.1 /CMM (0.8-4.8); LYMPHOCYTES % (AUTO) 6.9 % (20.0-44.0); MEAN CORPUSCULAR HEMOGLOBIN 34 PG (26.0-33.0); MEAN CORPUSCULAR HGB CONC 33 g/dl (31.0-36.0); MEAN CORPUSCULAR VOLUME 103 fL (82-100); MONOCYTES # (AUTO) 1.6 /CMM (0.1-1.30); MONOCYTES % (AUTO) 10.1 % (2.0-12.0); NEUTROPHILS # (AUTO) 13.3 /CMM (1.8-8.9); NEUTROPHILS % (AUTO) 81.3 % (43.0-81.0); PLATELET COUNT (AUTO) 180 /CMM (150-450); RDW COEFFICIENT OF VARIATION 20.9 (11.5-15.0); RED BLOOD CELL COUNT(AUTO) 2.81 MIL/uL (4.0-5.2); WHITE BLOOD COUNT (AUTO) 16.3 K/uL (4.3-11.0)
--- NOTE | 2016-11-30 18:29 | NUR ---
RN NOTES PT IS SITTING UP IN BED, RESTING COMFORTABLY. PT ON RA, RESPIRATIONS ARE EVEN AND UNLABORED. IV ON RAC INTACT AND PATENT, SL. 1 UNIT OF RBC'S GIVEN FOR POSSIBLE GI BLEED AND LOW HGB. AMADEO MALONE WAS NOTIFIED THAT NEW HGB AFTER UNIT GIVEN WAS 9.7, AND HE STATED HE DID NOT WANT TO DO A SECOND UNIT. MORPHINE GIVEN FOR PAIN AT 1730. ALL PT NEEDS MET, MEDS WERE GIVEN ORDERED. SAFETY MEASURES ARE IN PLACE, CALL LIGHT IS IN REACH. WILL ENDORSE TO FRUIT STUFFER RN FOR CONTINUITY OF CARE.
[2016-11-30 19:20] LABS: BAND % (MANUAL) 16 % (0.0-5.0); LYMPHOCYTES % (MANUAL) 10 % (16-48); MONOCYTES % (MANUAL) 14 % (0-11.0); NEUTROPHILS % (MANUAL) 60 (42-76)
--- NOTE | 2016-11-30 19:30 | NUR ---
MS RN NOTE RECEIVED PATIENT AWAKE AND ALERT IN BED. DENIES ANY PAIN OR DISCOMFORT AT THIS TIME. NO SOB OR RESPIRATORY DISTRESS. IV SITE INTACT, WITH NO REDNESS NOTED. BED LOCKED AND IN LOWEST POSITION. SIDE RAILS UP, CALL LIGHT WITHIN REACH. WILL CONTINUE TO MONITOR.
[2016-11-30 20:00] VITALS: BP_SYST 102; BP_SYST 103; BP_DIAS 56; BP_DIAS 62
[2016-11-30] MEDS: ENOXAPARIN SODIUM 40 MG/0.4 ML DISP.SYRIN SQ SCH (20:14)
--- NOTE | 2016-11-30 20:18 | NUR ---
MS RN NOTE HELD LOVENOX. ACTIVE BLEEDING FROM RECTUM. AWARE.
[2016-11-30 22:00] VITALS: BP 103/62
[2016-12-01] MEDS: MORPHINE SULFATE INJ 2 MG/ML DISP.SYRIN IV PRN ×5 (02:14→21:40)
[2016-12-01 06:46] LABS: EOSINOPHILS # (AUTO) 0.2 /CMM (0.0-0.7); EOSINOPHILS % (AUTO) 1.3 % (0.0-6.0); HEMATOCRIT 29 % (33-45); HEMOGLOBIN 9.9 g/dL (11.5-14.8); LYMPHOCYTES # (AUTO) 1.6 /CMM (0.8-4.8); LYMPHOCYTES % (AUTO) 10.2 % (20.0-44.0); MEAN CORPUSCULAR HEMOGLOBIN 35 PG (26.0-33.0); MEAN CORPUSCULAR HGB CONC 34 g/dl (31.0-36.0); MEAN CORPUSCULAR VOLUME 103 fL (82-100); MONOCYTES # (AUTO) 1.4 /CMM (0.1-1.30); MONOCYTES % (AUTO) 8.9 % (2.0-12.0); NEUTROPHILS # (AUTO) 12.5 /CMM (1.8-8.9); NEUTROPHILS % (AUTO) 79.6 % (43.0-81.0); PLATELET COUNT (AUTO) 166 /CMM (150-450); RDW COEFFICIENT OF VARIATION 21.1 (11.5-15.0); RED BLOOD CELL COUNT(AUTO) 2.82 MIL/uL (4.0-5.2); WHITE BLOOD COUNT (AUTO) 15.7 K/uL (4.3-11.0)
--- NOTE | 2016-12-01 06:52 | NUR ---
MS RN NOTE PATIENT STABLE. ALL NEEDS MET AND ATTENDED TO. WILL ENDORSE TO DAY SHIFT FOR GEOVANNY.
[2016-12-01 07:06] LABS: CALCIUM, SERUM 7.6 mg/dL (8.5-10.1); CREATININE 0.8 mg/dL (0.6-1.3); PHOSPHORUS 2.8 mg/dL (2.5-4.9); POTASSIUM 3.3 mmol/L (3.5-5.1)
--- NOTE | 2016-12-01 07:57 | NUR ---
RN MS NOTES PT RESTING IN BED. NO COMPLAINT OF PAIN OR DISCOMFORT. CALL LIGHT WITHIN REACH. WILL CONTINUE TO MONITOR.
[2016-12-01 08:19] VITALS: BP 100/62
[2016-12-01] MEDS: CYANOCOBALAMIN 100 MCG TABLET PO SCH (09:08)
[2016-12-01] MEDS: FUROSEMIDE 40 MG/4 ML VIAL IV SCH (09:08)
[2016-12-01] MEDS: SPIRONOLACTONE 25 MG TABLET PO SCH (09:08)
[2016-12-01] MEDS: LACTULOSE 10 G/15 ML UDC (PYXIS) PO SCH (09:09)
[2016-12-01] MEDS: PENTOXIFYLLINE 400 MG TABLET.SA PO SCH ×2 (09:09→17:42)
[2016-12-01] MEDS: FOLIC ACID 1 MG TABLET PO SCH (09:09)
[2016-12-01] MEDS: PANTOPRAZOLE 40 MG TABLET.DR PO SCH ×2 (09:09→21:44)
[2016-12-01 09:24] LABS: BAND % (MANUAL) 2 % (0.0-5.0); EOSINOPHILS % (MANUAL) 2 % (0-4); LYMPHOCYTES % (MANUAL) 4 % (16-48); MONOCYTES % (MANUAL) 8 % (0-11.0); NEUTROPHILS % (MANUAL) 84 (42-76)
[2016-12-01] MEDS ORDERED: POTASSIUM CHLORIDE 20 MEQ TAB.PRT.SR PO ONE (10:00)
--- NOTE | 2016-12-01 10:00 | NUR ---
RN NOTES PATIENT HAS A LEAKAGE ON RIGHT UPPER LATERAL FLANK AREA , AND REFUSED SKIN ASSESSMENT, PATIENT STATE " DO NOT TOUCH". CONTINUED MONITORING.
--- NOTE | 2016-12-01 10:00 | NUR ---
RN NOTES RECEIVED PATIENT IN THE ROOM, LYING IN THE BED, A/O X3, NO RESPIRATORY DISTRESS, NO SOB, IV HEP LOCK RIGHT AC AREA INTACT, PATIENT HAS A YELLOW DISCOLORATION ALL OVER THE BODY, DISTENDED ABDOMEN, AND RIGHT LOWER LEG SWOLLEN, PATIENT USING BED SIDE COMMODE, SKIN DRY, ENCOURAGED TO INCREASE FLUID INTAKE, V/S TAKEN STABLE, NEEDS ATTENDED AND ANTICIPATED, CALL LIGHT WITHIN TO REACH, SAFETY PRECAUTION MAINTAINED ALL THE TIME.
--- NOTE | 2016-12-01 11:55 | NUR ---
RN NOTES PATIENT IN THE BED, WAS COMPLAINING OF GENERALIZED PAIN 8/10 PER PAIN SCALE, ADMINISTERED MORPHING 2 MG/ML IV PUSH PRESCRIBED, V/S TAKEN BP-, P-63, CONTINUED MONITORING, ENCOURAGED TO INCREASE FLUID INTAKE,
[2016-12-01 12:10] VITALS: BP 104/68
--- NOTE | 2016-12-01 12:30 | NUR ---
COSME contacted pt's manager of case Gilberto Craft at [facility] and left him a voicemail message requesting a call back.
--- NOTE | 2016-12-01 12:47 | NUR ---
SW received a call back from pt's top case assembler Gilberto Craft from [facility] informing SW to send pt. to him once she is medically cleared for discharge. Pt. to be transported via taxi to [facility] located at [address] [place] [address] in [place].
--- NOTE | 2016-12-01 14:30 | NUR ---
RN NOTES PATIENT IN THE BED RESTING QUIETLY, NO ACUTE DISTRESS, NO RESPIRATORY DISTRESS, CALL LIGHT WITHIN TO REACH, MEDICATION WERE ADMINISTERED FOR PAIN EFFECTIVE, SAFETY PRECAUTION MAINTAINED ALL THE TIME.
[2016-12-01] MEDS ORDERED: PERMETHRIN 5% CRM 60 GM TUBE TP ONE (16:30)
[2016-12-01] MEDS ORDERED: IVERMECTIN 3 MG TABLET PO ONE (16:30)
[2016-12-01] MEDS ORDERED: PERMETHRIN 59 ML BOTTLE TP ONE (16:30)
--- NOTE | 2016-12-01 17:43 | NUR ---
RN NOTES ACCORDING PER PERFORMANCE REPORTER PATIENT HAS A LICE COWLING IN THE PILLOW CASE, MD , AND CHARGE NURSE AWARE OF. HARMONICA MAKER CREASE ORDER TAKEN, AND CARRIED OUT, ALSO ADMINISTERED MORPHINE 2 MG/ML IV PUSH GENERALIZED PAIN, PER PAIN SLIDING SCALE 8/10, , PER PATIENT REQUEST, V/S TAKE BP- 116/67, P-70, CALL LIGHT WITHIN TO REACH, SAFETY PRECAUTION MAINTAINED ALL THE TIME, PATIENT ON CONTACT ISOLATION.
--- NOTE | 2016-12-01 19:00 | NUR ---
RN NOTES PATIENT IN THE CONTACT ISOLATION, PATIENT LICE HAIR TREATMENT SHOWER GIVEN BY SEWING MACHINE ADJUSTER, AND APPLIED ELIMITE LOTION HEAD TO TOES, MEDICATION WERE ADMINISTERED FOR PAIN EFFECTIVE, CALL LIGHT WITHIN TO REACH, SAFETY PRECAUTION MAINTAINED ALL THE TIME, ENDORSED ONCOMING NURSE FOR CONTINUATION OF CARE.
[2016-12-01 20:00] VITALS: BP 113/79
--- NOTE | 2016-12-01 20:52 | NUR ---
NURSING NOTES: Recieved patients alert and orientated, Agitated and demanding to be medicated " because the other nurse did not", instructed her how we keep tract of given medication and she did recieve the medication.nurse, Juice given and she now is watching TV. Isolation D/T DX. with Lice, [place] was started today, contact Isolation continued.. Abd round with audible BS vis auscultation. Will reasses for need of analgesic through the night.
--- NOTE | 2016-12-02 03:20 | NUR ---
NURSING NOTES: patient in Isolation D/T the findings of LICE in her hair. Contact Isolation maintained. Patient use the bedside commode, remains continent. For pain in her abd. she has requisted Morphine 2m IV not wanting to take [place]. Right abd s/p paracentisis yellow leakage., noted she has a towel at the site, offered her a dressing with gauze, she refused "they don't stay in place. Offered her a bag that would adhere to the skin and the nurse would empty frequently, "No! I want to use a towel" she was adament.
[2016-12-02] MEDS: MORPHINE SULFATE INJ 2 MG/ML DISP.SYRIN IV PRN ×4 (04:25→22:29)
[2016-12-02 06:42] LABS: EOSINOPHILS # (AUTO) 0.2 /CMM (0.0-0.7); EOSINOPHILS % (AUTO) 1.1 % (0.0-6.0); HEMATOCRIT 29 % (33-45); HEMOGLOBIN 10.2 g/dL (11.5-14.8); LYMPHOCYTES # (AUTO) 1.5 /CMM (0.8-4.8); LYMPHOCYTES % (AUTO) 8.6 % (20.0-44.0); MEAN CORPUSCULAR HEMOGLOBIN 36 PG (26.0-33.0); MEAN CORPUSCULAR HGB CONC 35 g/dl (31.0-36.0); MEAN CORPUSCULAR VOLUME 102 fL (82-100); MONOCYTES # (AUTO) 1.3 /CMM (0.1-1.30); MONOCYTES % (AUTO) 7.5 % (2.0-12.0); NEUTROPHILS # (AUTO) 14.8 /CMM (1.8-8.9); NEUTROPHILS % (AUTO) 82.8 % (43.0-81.0); PLATELET COUNT (AUTO) 162 /CMM (150-450); RDW COEFFICIENT OF VARIATION 20.6 (11.5-15.0); RED BLOOD CELL COUNT(AUTO) 2.84 MIL/uL (4.0-5.2); WHITE BLOOD COUNT (AUTO) 17.8 K/uL (4.3-11.0)
[2016-12-02 06:58] LABS: CALCIUM, SERUM 7.8 mg/dL (8.5-10.1); CREATININE 0.8 mg/dL (0.6-1.3)
--- NOTE | 2016-12-02 07:53 | NUR ---
RN OPENING NOTES RECEIVED PATIENT RESTING COMFORTABLY IN BED. AOX4. COMPLAINING OF PAIN 8/10 IN THE ABD. PAIN. DENIES SOB. DENIES CP. PATIENT HAS EVIDENT ASCITES NOTED. IV ACCES RAC 22G HL. PATENT AND INTACT. SATURATING ADEQUATELY ON RA. LEAKAGE NOTED AT THE PARACENTESIS SITE. PATIENT SAID TO HAVE LICE. TREATMENT AND SHOWER DONE EARLY THIS MORNING. ISOLATION PRECAUTIONS STILL IN PLACE. BED LOCKED IN THE LOWEST POSITION WITH SIDE RAILS UP X2. CALL LIGHT WITHIN REACH. WILL CONTINUE TO MONITOR, ASSESS AND EDUCATE THROUGHOUT SHIFT.
[2016-12-02 08:00] VITALS: BP 102/62
[2016-12-02] MEDS: FOLIC ACID 1 MG TABLET PO SCH (08:50)
[2016-12-02] MEDS: FUROSEMIDE 40 MG/4 ML VIAL IV SCH (08:50)
[2016-12-02] MEDS: SPIRONOLACTONE 25 MG TABLET PO SCH (08:50)
[2016-12-02] MEDS: PANTOPRAZOLE 40 MG TABLET.DR PO SCH ×2 (08:50→20:26)
[2016-12-02] MEDS: CYANOCOBALAMIN 100 MCG TABLET PO SCH (08:51)
[2016-12-02] MEDS: LACTULOSE 10 G/15 ML UDC (PYXIS) PO SCH (08:55)
[2016-12-02] MEDS: PENTOXIFYLLINE 400 MG TABLET.SA PO SCH ×2 (08:56→17:47)
[2016-12-02] MEDS: POTASSIUM CHLORIDE 20 MEQ TAB.PRT.SR PO SCH ×3 (10:44→14:26)
--- NOTE | 2016-12-02 11:27 | NUR ---
COSME contacted pt's senior case manager Gilberto Craft at [facility] and left him a voicemail message informing him the pt. is not medically cleared for discharge today.
[2016-12-02] MEDS ORDERED: Sodium Phosphate 15 MMOL in IV D5W 250 ML IV ONE (13:00)
[2016-12-02] MEDS ORDERED: CEFTRIAXONE 1 G in IV D5W 50 ML IV SCH (13:00)
[2016-12-02 14:02] LABS: BILIRUBIN,DIRECT 23.5 mg/dL (0.0-0.2); BILIRUBIN,TOTAL 28.2 mg/dL (0.2-1.0)
--- NOTE | 2016-12-02 14:30 | NUR ---
RN NOTES CRITICAL LABS REPORTED TO VAHE QUIÑONEZ. LACTIC ACID, TOTAL BILIRUBIN AND, DIRECT BILIRUBIN ELEVATED. VAHE QUIÑONEZ AWARE.
[2016-12-02 16:00] VITALS: BP 119/60
--- NOTE | 2016-12-02 19:10 | NUR ---
RN CLOSING NOTES PATIENT RESTING COMFORTABLY IN BED. AOX3. CONTINUOUS LEAKAGE NOTED AT THE PARACENTESIS SITE. COLOSTOMY BAG IN PLACE. APPROXIMATELY 250 MLS NOTED OF DRAINAGE. IV ACCESS PATENT AND INTACT. NO ACUTE DISTRESS. RESPIRATIONS EVEN AND UNLABORED. ALL NEEDS MET. ALL MEDS GIVEN APPROPRIATE. PATIENT IS COMFORTABLE. COMPLAINING OF PAIN 8/10 IN THE ABD. WILL ENDORSE TO NIGHT RN FOR GEOVANNY.
--- NOTE | 2016-12-02 19:35 | NUR ---
MS RN OPENING NOTES RECEIVED REPORT FROM DAY RN, PT COMFORTABLY IN BED. AOX4. NO SIGNS OF SOB OR DISTRESS. PATIENT HAS EVIDENT ASCITES NOTED. IV ACCES RAC 22G HL. PATENT AND INTACT. SATURATING ADEQUATELY ON RA. LEAKAGE NOTED AT THE PARACENTESIS SITE, COLOSTOMY BAG IN PLACE. PT IS JAUNDICE. PATIENT SAID TO HAVE LICE WITH TREATMENT AND SHOWER COMPLETED IN THE AM. LICE NOTED ON THE BEDSHEETS. ISOLATION PRECAUTIONS STILL IN PLACE. BED LOCKED IN THE LOWEST POSITION WITH SIDE RAILS UP X2. CALL LIGHT WITHIN REACH. WILL CONTINUE TO MONITOR, ASSESS AND EDUCATE THROUGHOUT SHIFT.
[2016-12-02 20:00] VITALS: BP 92/57
[2016-12-02] MEDS: CEFEPIME 1 GM in IV D5W 50 ML IV SCH (20:25)
--- NOTE | 2016-12-02 22:00 | NUR ---
COLOSTOMY BAG WAS CHANGED
--- NOTE | 2016-12-03 04:46 | NUR ---
MORPHINE 2MG WAS GIVEN AT 0245 WHILE COMPUTERS WERE DOWN
[2016-12-03 06:41] LABS: CALCIUM, SERUM 8.1 mg/dL (8.5-10.1); CREATININE 0.9 mg/dL (0.6-1.3); POTASSIUM 3.5 mmol/L (3.5-5.1)
--- NOTE | 2016-12-03 06:49 | NUR ---
MS RN CLOSING NOTES PT IS IN BED RESTING, NO SIGNS OF SOB OR DISTRESS. IV ACCESS IS INTACT AND PATENT. COLONOSCOPY BAG WAS CHANGED. LICE ARE STILL VISIBLE. ALL NEEDS WERE ANTICIPATED AND MET. WILL ENDORSE TO DAY SHIFT
[2016-12-03 08:00] VITALS: BP 116/62
[2016-12-03] MEDS: CEFEPIME 1 GM in IV D5W 50 ML IV SCH ×2 (09:18→20:13)
[2016-12-03] MEDS: FOLIC ACID 1 MG TABLET PO SCH (09:19)
[2016-12-03] MEDS: CYANOCOBALAMIN 100 MCG TABLET PO SCH (09:19)
[2016-12-03] MEDS: PENTOXIFYLLINE 400 MG TABLET.SA PO SCH ×2 (09:19→17:39)
[2016-12-03] MEDS: LACTULOSE 10 G/15 ML UDC (PYXIS) PO SCH (09:19)
[2016-12-03] MEDS: PANTOPRAZOLE 40 MG TABLET.DR PO SCH ×2 (09:19→20:13)
[2016-12-03] MEDS: SPIRONOLACTONE 25 MG TABLET PO SCH (09:19)
[2016-12-03] MEDS: FUROSEMIDE 40 MG/4 ML VIAL IV SCH (09:32)
[2016-12-03] MEDS: MORPHINE SULFATE INJ 2 MG/ML DISP.SYRIN IV PRN ×3 (09:41→20:13)
[2016-12-03 10:18] LABS: BASOPHILS % (AUTO) 0.2 % (0.0-2.0); EOSINOPHILS # (AUTO) 0.1 /CMM (0.0-0.7); EOSINOPHILS % (AUTO) 0.6 % (0.0-6.0); HEMATOCRIT 30 % (33-45); HEMOGLOBIN 9.9 g/dL (11.5-14.8); LYMPHOCYTES # (AUTO) 0.8 /CMM (0.8-4.8); LYMPHOCYTES % (AUTO) 4.2 % (20.0-44.0); MEAN CORPUSCULAR HEMOGLOBIN 35 PG (26.0-33.0); MEAN CORPUSCULAR HGB CONC 33 g/dl (31.0-36.0); MEAN CORPUSCULAR VOLUME 104 fL (82-100); MONOCYTES # (AUTO) 1.2 /CMM (0.1-1.30); MONOCYTES % (AUTO) 6.3 % (2.0-12.0); NEUTROPHILS # (AUTO) 16.9 /CMM (1.8-8.9); NEUTROPHILS % (AUTO) 88.7 % (43.0-81.0); PLATELET COUNT (AUTO) 146 /CMM (150-450); RDW COEFFICIENT OF VARIATION 20.5 (11.5-15.0); RED BLOOD CELL COUNT(AUTO) 2.85 MIL/uL (4.0-5.2); WHITE BLOOD COUNT (AUTO) 19.1 K/uL (4.3-11.0)
[2016-12-03 10:46] LABS: BAND % (MANUAL) 2 % (0.0-5.0); EOSINOPHILS % (MANUAL) 1 % (0-4); LYMPHOCYTES % (MANUAL) 6 % (16-48); MONOCYTES % (MANUAL) 5 % (0-11.0); NEUTROPHILS % (MANUAL) 86 (42-76)
[2016-12-03 16:00] VITALS: BP_SYST 105; BP_SYST 111; BP_DIAS 60; BP_DIAS 62
[2016-12-03 18:16] LABS: ALBUMIN 1.6 g/dL (3.4-5.0); BILIRUBIN,DIRECT 20.2 mg/dL (0.0-0.2); BILIRUBIN,TOTAL 24.5 mg/dL (0.2-1.0); TOTAL PROTEIN, SERUM 4.5 g/dL (6.4-8.2)
--- NOTE | 2016-12-03 18:16 | NUR ---
RN CLOSING NOTES: - PATIENT HAS BEEN MAINTAINED NPO DUE TO THE CT SCAN OF ABDOMEN & PELVIS PER MD'S ORDERS, WITH EXPLANATION THAT DINNER WILL BE DELAYED DUE TO THE CT SCAN. HAD ATTEMPTED TO INSERT ANOTHER IV SITE BUT IT GOT INFILTRATED EVEN ANOTHER RN ATTEMPTED. TONY ALBERT RN NOTIFIED.
[2016-12-03 18:54] LABS: INR 1.52 (0.87-1.13); PROTHROMBIN TIME 15.9 SECS (9.5-12.7)
--- NOTE | 2016-12-03 19:45 | NUR ---
RN MS - INITIAL NOTES PATIENT IN BED ALERT AND ORIENTED X3. NO S/S OF SOB OR ANY DISCOMFORT NOTED AT THIS TIME. CONTACT ISOLATION FOR LICE IS STILL ONGOING. NO SIGNIFICANT CHANGES NOTED. WILL CONTINUE TO MONITOR PATIENT.
[2016-12-03 20:00] VITALS: BP 108/61
[2016-12-04] VITALS: BP 95/52
[2016-12-04] MEDS: MORPHINE SULFATE INJ 2 MG/ML DISP.SYRIN IV PRN ×4 (00:21→20:36)
[2016-12-04 08:00] VITALS: BP 97/59
--- NOTE | 2016-12-04 08:00 | NUR ---
RN MS OPENING NOTES PT RESTING IN BED. NO APPARENT S/S OF PAIN OR DISTRESS. CALL LIGHT WITHIN REACH. WILL CONTINUE TO MONITOR PT.
[2016-12-04] MEDS: SPIRONOLACTONE 25 MG TABLET PO SCH (09:42)
[2016-12-04] MEDS: FUROSEMIDE 40 MG/4 ML VIAL IV SCH (09:42)
[2016-12-04] MEDS: PENTOXIFYLLINE 400 MG TABLET.SA PO SCH ×2 (09:43→17:17)
[2016-12-04] MEDS: CYANOCOBALAMIN 100 MCG TABLET PO SCH (09:43)
[2016-12-04] MEDS: FOLIC ACID 1 MG TABLET PO SCH (09:43)
[2016-12-04] MEDS: LACTULOSE 10 G/15 ML UDC (PYXIS) PO SCH (09:43)
[2016-12-04] MEDS: PANTOPRAZOLE 40 MG TABLET.DR PO SCH ×2 (09:43→20:36)
[2016-12-04] MEDS: CEFEPIME 1 GM in IV D5W 50 ML IV SCH (09:50)
[2016-12-04 10:35] LABS: CALCIUM, SERUM 7.9 mg/dL (8.5-10.1); POTASSIUM 3.1 mmol/L (3.5-5.1)
[2016-12-04 11:14] LABS: HEMATOCRIT 28 % (33-45); HEMOGLOBIN 9.6 g/dL (11.5-14.8); MEAN CORPUSCULAR HEMOGLOBIN 36 PG (26.0-33.0); MEAN CORPUSCULAR HGB CONC 35 g/dl (31.0-36.0); MEAN CORPUSCULAR VOLUME 103 fL (82-100); PLATELET COUNT (AUTO) 151 /CMM (150-450); RDW COEFFICIENT OF VARIATION 19.9 (11.5-15.0); WHITE BLOOD COUNT (AUTO) 18.4 K/uL (4.3-11.0)
[2016-12-04 11:15] LABS: EOSINOPHILS % (AUTO) 0.7 % (0.0-6.0); LYMPHOCYTES % (AUTO) 11.7 % (20.0-44.0); MONOCYTES % (AUTO) 7.1 % (2.0-12.0); NEUTROPHILS % (AUTO) 80.5 % (43.0-81.0)
[2016-12-04] MEDS ORDERED: IV NS 0.9% 250 ML IV ONE (13:04)
[2016-12-04] MEDS ORDERED: IOHEXOL-300 100 ML VIAL IV ONE (13:04)
[2016-12-04] MEDS ORDERED: CT SWABBABLE VALVE TRANS SET 1 EA INFUS.SET MC ONE (13:04)
[2016-12-04] MEDS ORDERED: POTASSIUM CHLORIDE 20 MEQ TAB.PRT.SR PO SCH (15:00)
[2016-12-04 16:00] VITALS: BP 93/62
--- NOTE | 2016-12-04 19:07 | NUR ---
RN CLOSING NOTES PT IS RESTING IN BED. NO COMPLAINTS OF PAIN. NO S/S OF DISTRESS. KEPT PT CALM AND COMFORTABLE. CALL LIGHT WITHIN REACH. BEDSIDE COMMODE AVAILABLE.
--- NOTE | 2016-12-04 19:40 | NUR ---
RN OPENING NOTES RECEIVED REPORT FROM BERTHA HUERTA/IRVING. FOUND Pt AWAKE, RESTING IN BED WATCHING TV. Pt IS A/OX3. NO S/S OF ACUTE DISTRESS OR SOB NOTED. Pt C/O PAIN, WILL ADMINISTER PRN PAIN MED WHEN DUE. IV ACCESS ON RAC #22G, SL. SAFETY MEASURES IN PLACE. BED LOW, LOCKED, HOB ELEVATED, SIDE RAILS UP, CALL LIGHT AND BEDSIDE TABLE WITHIN REACH. WILL CONTINUE TO MONITOR Pt THROUGHOUT THE NIGHT FOR SAFETY.
[2016-12-04 20:00] VITALS: BP 104/61
[2016-12-04] MEDS: METRONIDAZOLE 500 MG TABLET PO SCH (20:36)
[2016-12-05] MEDS: MORPHINE SULFATE INJ 2 MG/ML DISP.SYRIN IV PRN ×5 (03:30→22:02)
[2016-12-05 04:00] VITALS: BP 101/54
[2016-12-05] MEDS: METRONIDAZOLE 500 MG TABLET PO SCH ×3 (05:01→20:47)
[2016-12-05 06:42] LABS: CALCIUM, SERUM 8.1 mg/dL (8.5-10.1); POTASSIUM 3.3 mmol/L (3.5-5.1)
--- NOTE | 2016-12-05 06:47 | NUR ---
RN CLOSING NOTES NO SIGNIFICANT CHANGES NOTED DURING THE SHIFT. NO S/S OF ACUTE DISTRESS OR SOB NOTED DURING THE NIGHT. ALL NEEDS MET AND ATTENDED TO. SAFETY MEASURES IN PLACE. WILL ENDORSE TO DAYSHIFT RN FOR Pt's GEOVANNY.
[2016-12-05 07:00] VITALS: BP 109/65
--- NOTE | 2016-12-05 07:10 | NUR ---
MS RN OPENING NOTES RECEIVED PT FROM NIGHTSHIFT NURSE IN STABLE CONDITION. PT IS A/O X3. NO SOB OR SIGNS OF DISTRESS NOTED. BREATHING IS EVEN AND UNLABORED. COLOSTOMY BAG NOTED ON RIGHT ABDOMINAL SIDE TO COLLECT EXCESS PARACENTESIS FLUID. BAG WAS RECENTLY CHANGED BY NIGHTSHIFT NURSE AND IS EMPTY AT THIS TIME. PT HAS A JAUNDICE APPEARANCE. IV IS NOTED ON RIGHT AC 22G. IV IS PATENT AND INTACT. NO REDNESS OR SIGNS OF INFILTRATION NOTED. BED IN LOW LOCKED POSITION, SIDE RAILS UP X2, CALL LIGHT WITHIN REACH. WILL CONTINUE TO MONITOR
[2016-12-05 08:44] LABS: BASOPHILS % (AUTO) 0.1 % (0.0-2.0); EOSINOPHILS # (AUTO) 0.2 /CMM (0.0-0.7); EOSINOPHILS % (AUTO) 1.1 % (0.0-6.0); HEMATOCRIT 31 % (33-45); HEMOGLOBIN 9.5 g/dL (11.5-14.8); LYMPHOCYTES # (AUTO) 1.2 /CMM (0.8-4.8); MEAN CORPUSCULAR HEMOGLOBIN 33 PG (26.0-33.0); MEAN CORPUSCULAR HGB CONC 31 g/dl (31.0-36.0); MEAN CORPUSCULAR VOLUME 106 fL (82-100); MONOCYTES # (AUTO) 1.5 /CMM (0.1-1.30); MONOCYTES % (AUTO) 8.2 % (2.0-12.0); NEUTROPHILS # (AUTO) 14.8 /CMM (1.8-8.9); NEUTROPHILS % (AUTO) 83.6 % (43.0-81.0); PLATELET COUNT (AUTO) 143 /CMM (150-450); RDW COEFFICIENT OF VARIATION 19.4 (11.5-15.0); RED BLOOD CELL COUNT(AUTO) 2.88 MIL/uL (4.0-5.2); WHITE BLOOD COUNT (AUTO) 17.7 K/uL (4.3-11.0)
[2016-12-05] MEDS: PANTOPRAZOLE 40 MG TABLET.DR PO SCH ×2 (08:58→20:47)
[2016-12-05] MEDS: FOLIC ACID 1 MG TABLET PO SCH (08:58)
[2016-12-05] MEDS: PENTOXIFYLLINE 400 MG TABLET.SA PO SCH ×2 (08:59→17:56)
[2016-12-05] MEDS: SPIRONOLACTONE 25 MG TABLET PO SCH (08:59)
[2016-12-05] MEDS: CYANOCOBALAMIN 100 MCG TABLET PO SCH (08:59)
[2016-12-05] MEDS: FUROSEMIDE 40 MG/4 ML VIAL IV SCH (08:59)
[2016-12-05] MEDS: LACTULOSE 10 G/15 ML UDC (PYXIS) PO SCH (08:59)
[2016-12-05] MEDS ORDERED: POTASSIUM CHLORIDE 20 MEQ POWDER PACKET PO SCH (11:30)
[2016-12-05] MEDS: IV NS 0.9% 1,000 ML IV PRN (12:44)
[2016-12-05 15:56] VITALS: BP 99/49
--- NOTE | 2016-12-05 18:38 | NUR ---
MS RN CLOSING NOTES PT REMAINS IN STABLE CONDITION. ALL NEEDS WERE MET DURING SHIFT AND ORDERS CARRIED OUT ACCORDINGLY. ALL DUE MEDS GIVEN. PT DENIES PAIN AT THIS TIME AFTER ADMINISTRATION OF PRN PAIN MEDICATION. IV REMAINS PATENT AND INFUSING NS @ 75ML/HR. PT IS TOLERATING INFUSION WELL. NO REDNESS OR SIGNS OF INFILTRATION NOTED. ALL SAFETY MEASURES REMAIN IN PLACE. WILL ENDORSE TO NIGHTSHIFT NURSE FOR GEOVANNY
[2016-12-05 20:00] VITALS: BP 96/53
--- NOTE | 2016-12-05 20:00 | NUR ---
RN NOTES RECEIVED PATIENT IN BED, ALERT AND ORIENTED X3, CALM, AT THIS TIME, NO SOB, TOLERATING ROOM AIR, SPO2 98%, REQUIRES MEDICATION FOR PAIN, EXPLAINED TO PATIENT SCHEDULE, PATIENT VERBALIZE UNDERSTANDING, PERIPHERAL LINE IS DISLODGED, WILL NEED TO REINSERT. NEEDS ATTENDED, KEPT SAFE AND COMFORTABLE, CALL LIGHT WITHIN REACH.
--- NOTE | 2016-12-05 21:29 | NUR ---
RN NOTES GIVEN REPORT TO WAN FOR CONTINUITY OF CARE
--- NOTE | 2016-12-05 21:30 | NUR ---
RN OPENING NOTES RECEIVED ENDORSEMENT FROM RN TAMEKA. FOUND Pt AWAKE RESTING IN BED. NO S/S OF ACUTE DISTRESS OR SOB NOTED. EVEN AND UNLABORED BREATHING. NEW IV SITE STARTED ON L HAND #22G, IVF NS @75ML/HR, INFUSING WELL. SAFETY MEASURES IN PLACE. BED LOW, LOCKED, HOB ELEVATED, SIDE RAILS UP, CALL LIGHT AND BEDSIDE TABLE WITHIN REACH. WILL CONTINUE TO MONITOR Pt THROUGHOUT THE NIGHT FOR SAFETY.
[2016-12-06 02:00] VITALS: BP 95/54
[2016-12-06] MEDS: METRONIDAZOLE 500 MG TABLET PO SCH ×3 (04:12→20:57)
[2016-12-06] MEDS: MORPHINE SULFATE INJ 2 MG/ML DISP.SYRIN IV PRN ×3 (04:12→20:58)
[2016-12-06] MEDS: HYDROCODONE/APAP 5/325MG 1 EACH TABLET PO PRN (06:17)
--- NOTE | 2016-12-06 06:33 | NUR ---
RN CLOSING NOTES Pt REMAINS IN STABLE CONDITION. NO SIGNIFICANT CHANGES NOTED DURING THE NIGHT. NO S/S OF ACUTE DISTRESS OR SOB NOTED DURING THE SHIFT. ALL NEEDS MET AND ATTENDED TO. SAFETY MEASURES IN PLACE. WILL ENDORSE TO DAYSHIFT RN FOR Pt's GEOVANNY.
[2016-12-06 06:44] LABS: CALCIUM, SERUM 7.8 mg/dL (8.5-10.1); CREATININE 1.1 mg/dL (0.6-1.3); POTASSIUM 3.4 mmol/L (3.5-5.1)
--- NOTE | 2016-12-06 07:32 | NUR ---
AM RN NOTE Received patient awake, A/O X3 verbally responsive. No acute distress noted. Resp even and non-labored. IV site intact and patent. Bed in low locked position. Will continue to monitor. Call light with in reach.
[2016-12-06 08:00] VITALS: BP 106/60
[2016-12-06] MEDS: PANTOPRAZOLE 40 MG TABLET.DR PO SCH ×2 (08:11→20:57)
[2016-12-06] MEDS: CYANOCOBALAMIN 100 MCG TABLET PO SCH (08:11)
[2016-12-06] MEDS: FOLIC ACID 1 MG TABLET PO SCH (08:11)
[2016-12-06] MEDS: LACTULOSE 10 G/15 ML UDC (PYXIS) PO SCH (08:11)
[2016-12-06] MEDS: PENTOXIFYLLINE 400 MG TABLET.SA PO SCH ×2 (08:12→16:14)
[2016-12-06 08:51] LABS: EOSINOPHILS # (AUTO) 0.1 /CMM (0.0-0.7); EOSINOPHILS % (AUTO) 0.5 % (0.0-6.0); HEMATOCRIT 28 % (33-45); HEMOGLOBIN 9.3 g/dL (11.5-14.8); LYMPHOCYTES # (AUTO) 1.1 /CMM (0.8-4.8); LYMPHOCYTES % (AUTO) 5.5 % (20.0-44.0); MEAN CORPUSCULAR HEMOGLOBIN 35 PG (26.0-33.0); MEAN CORPUSCULAR HGB CONC 33 g/dl (31.0-36.0); MEAN CORPUSCULAR VOLUME 104 fL (82-100); MONOCYTES # (AUTO) 1.2 /CMM (0.1-1.30); MONOCYTES % (AUTO) 5.9 % (2.0-12.0); NEUTROPHILS # (AUTO) 18.3 /CMM (1.8-8.9); NEUTROPHILS % (AUTO) 88.1 % (43.0-81.0); PLATELET COUNT (AUTO) 175 /CMM (150-450); RDW COEFFICIENT OF VARIATION 18.5 (11.5-15.0); RED BLOOD CELL COUNT(AUTO) 2.69 MIL/uL (4.0-5.2); WHITE BLOOD COUNT (AUTO) 20.7 K/uL (4.3-11.0)
[2016-12-06 09:31] LABS: BAND % (MANUAL) 8 % (0.0-5.0); EOSINOPHILS % (MANUAL) 1 % (0-4); LYMPHOCYTES % (MANUAL) 7 % (16-48); MONOCYTES % (MANUAL) 6 % (0-11.0); NEUTROPHILS % (MANUAL) 78 (42-76)
[2016-12-06] MEDS ORDERED: POTASSIUM CHLORIDE 20 MEQ TAB.PRT.SR PO SCH (10:30)
[2016-12-06] MEDS: IV NS 0.9% 1,000 ML IV PRN (10:36)
[2016-12-06] MEDS: POTASSIUM CL. PREMIX PERIPHER. 50 ML IV SCH ×2 (12:27→13:28)
[2016-12-06 16:00] VITALS: BP 116/69
--- NOTE | 2016-12-06 18:13 | NUR ---
AM RN NOTE Patient awake, denies any pain or discomfort at this time. S/P paracentesis site on right abdominal side covered with colostomy bag, no drainage noted at site. Will continue to monitor and endorse care to next shift.
--- NOTE | 2016-12-06 19:30 | NUR ---
RN NOTES PATIENT ALERT AND ORIENTED X3. VS STABLE. NO C/O PAIN AT THIS TIME. RESPIRATIONS EVEN AND UNLABORED. PARACENTESIS SITE ON RIDE ABDOMINAL SITE COVERED WITH COLOSTOMY BAG. NO LEAKAGE NOTED. IV ACCESS ON LEFT HAND PATENT AND INTACT. INFUSING NS 75 ML/HR. BED IN LOW POSITION. SIDE RAILSX2. CALL LIGHT WITHIN EASY REACH. CONTINUE TO MONITOR.
[2016-12-06 20:00] VITALS: BP 95/54
[2016-12-07] MEDS: ONDANSETRON HCL/PF 4 MG/2 ML VIAL IVP PRN (00:19)
--- NOTE | 2016-12-07 00:30 | NUR ---
RN NOTES GIVEN ZOFRAN 4 MG IVP PRN, COMPLAINING OF N/V WITH X2 EMESIS, GIVEN ICE CHIPS AND HELPED TO BEDSIDE COMMODE. KEPT COMFORTABLE, WILL CONTINUE TO MONITOR
[2016-12-07] MEDS: MORPHINE SULFATE INJ 2 MG/ML DISP.SYRIN IV PRN ×5 (01:07→20:57)
[2016-12-07] MEDS: IV NS 0.9% 1,000 ML IV PRN ×2 (02:43→20:57)
[2016-12-07] MEDS: METRONIDAZOLE 500 MG TABLET PO SCH ×3 (04:56→20:57)
[2016-12-07 06:28] LABS: BASOPHILS # (AUTO) 0.1 /CMM (0.0-0.2); BASOPHILS % (AUTO) 0.7 % (0.0-2.0); EOSINOPHILS # (AUTO) 0.1 /CMM (0.0-0.7); EOSINOPHILS % (AUTO) 0.4 % (0.0-6.0); HEMATOCRIT 27 % (33-45); HEMOGLOBIN 9.3 g/dL (11.5-14.8); LYMPHOCYTES # (AUTO) 1.1 /CMM (0.8-4.8); LYMPHOCYTES % (AUTO) 5.3 % (20.0-44.0); MEAN CORPUSCULAR HEMOGLOBIN 36 PG (26.0-33.0); MEAN CORPUSCULAR HGB CONC 34 g/dl (31.0-36.0); MEAN CORPUSCULAR VOLUME 104 fL (82-100); MONOCYTES # (AUTO) 0.9 /CMM (0.1-1.30); MONOCYTES % (AUTO) 4.2 % (2.0-12.0); NEUTROPHILS # (AUTO) 18.6 /CMM (1.8-8.9); NEUTROPHILS % (AUTO) 89.4 % (43.0-81.0); PLATELET COUNT (AUTO) 176 /CMM (150-450); RDW COEFFICIENT OF VARIATION 18.4 (11.5-15.0); RED BLOOD CELL COUNT(AUTO) 2.61 MIL/uL (4.0-5.2); WHITE BLOOD COUNT (AUTO) 20.9 K/uL (4.3-11.0)
--- NOTE | 2016-12-07 06:47 | NUR ---
RN NOTES PATIENT SLEEPING IN BED. VS STABLE. NO C/O PAIN AT THIS TIME. RESPIRATIONS EVEN AND UNLABORED. PARACENTESIS SITE ON RIDE ABDOMINAL SITE COVERED WITH COLOSTOMY BAG. NO LEAKAGE NOTED. IV ACCESS ON LEFT HAND PATENT AND INTACT. INFUSING NS 75 ML/HR. ALL MEDICATIONS GIVEN PER MD ORDER. BED IN LOW POSITION. SIDE RAILSX2. CALL LIGHT WITHIN EASY REACH. WILL ENDORSE TO RN DAY SHIFT FOR CONTINUITY OF CARE.
[2016-12-07 06:50] LABS: CALCIUM, SERUM 7.7 mg/dL (8.5-10.1); CREATININE 1.2 mg/dL (0.6-1.3); MAGNESIUM 1.8 mg/dL (1.8-2.4); PHOSPHORUS 2.2 mg/dL (2.5-4.9); POTASSIUM 3.2 mmol/L (3.5-5.1)
--- NOTE | 2016-12-07 07:10 | NUR ---
MS RN NOTES RECEIVED PATIENT IN BED, AWAKE. A/O X3, ON ROOM AIR. BREATHING EVEN AND NON LABORED. IVF NS INFUSING AT 75ML/HR, TOLERATING WELL, NO SOB. ABDOMEN DISTENDED, PRESENCE OF COLOSTOMY BAG, NO FLUID DRAINAGE NOTED, S/P PARACENTESIS ON 12/04/16 PER REPORT. CALL LIGHT WITHIN REACH. WILL CONT TO MONITOR.
[2016-12-07 08:00] VITALS: BP_SYST 92; BP_SYST 94; BP_DIAS 51; BP_DIAS 58
[2016-12-07] MEDS ORDERED: POTASSIUM PHOSPHATE MM 15 MMOL in IV D5W 250 ML IV SCH (08:30)
[2016-12-07] MEDS: POTASSIUM PHOSPHATE MM 7.5 MMOL in IV D5W 100 ML IV SCH ×2 (09:34→13:30)
[2016-12-07] MEDS: CYANOCOBALAMIN 100 MCG TABLET PO SCH (09:36)
[2016-12-07] MEDS: FOLIC ACID 1 MG TABLET PO SCH (09:36)
[2016-12-07] MEDS: PENTOXIFYLLINE 400 MG TABLET.SA PO SCH ×2 (09:36→17:18)
[2016-12-07] MEDS: PANTOPRAZOLE 40 MG TABLET.DR PO SCH ×2 (09:36→20:57)
[2016-12-07] MEDS: LACTULOSE 10 G/15 ML UDC (PYXIS) PO SCH (09:36)
[2016-12-07] MEDS: Magnesium 1GM/D5W 100ML PREMIX 100 ML IV SCH ×2 (10:05→11:50)
[2016-12-07 11:38] LABS: BAND % (MANUAL) 4 % (0.0-5.0); LYMPHOCYTES % (MANUAL) 3 % (16-48); MONOCYTES % (MANUAL) 6 % (0-11.0); NEUTROPHILS % (MANUAL) 87 (42-76)
[2016-12-07] MEDS: HYDROCODONE/APAP 5/325MG 1 EACH TABLET PO PRN (13:38)
[2016-12-07 16:00] VITALS: BP 94/58
--- NOTE | 2016-12-07 18:33 | NUR ---
MS CLOSING NOTES PATIENT IN BED, A/O X3. TOLERATING ROOM AIR, NO SOB. POTASSIUM AND PHOSPHORUS SUPPLEMENT, IVF NS INFUSING AT 75ML/HR. PATIENT HAD BOWEL MOVEMENT TODAY, MOD AMT. BROWN STOOL. ABDOMEN STILL DISTENDED, NO FLUID DRAINAGE IN THE COLOSTOMY BAG. CALL LIGHT WITHIN REACH. PLAN FOR HALFWAY UPON DC. WILL ENDORSE TO CORRESPONDENCE DICTATOR RN FOR GEOVANNY.
--- NOTE | 2016-12-07 19:40 | NUR ---
MS RN NOTE RECEIVED PATIENT FROM DAY SHIFT, PATIENT IS ALERT AND ORIENTEDX3, DENIES RESPIRATORY DISTRESS, NO COMPLAINS OF PAIN AT THIS TIME. LEFT HAND IV ACCESS IS PATENT AND INTACT, FLUID IS RUNNING. SRX2, BED IN LOW POSITION, CALL LIGHT WITHIN REACH, WILL CONTINUE TO MONITOR PATIENT.
[2016-12-07 20:35] VITALS: BP 86/44
--- NOTE | 2016-12-07 21:00 | NUR ---
MS RN NOTE PATIENT COMPLAINS OF ABDOMINAL PAIN 09/24, MORPHINE 2MG IVP GIVEN. WILL MONITOR EFFECTIVENESS.
[2016-12-08] MEDS: MORPHINE SULFATE INJ 2 MG/ML DISP.SYRIN IV PRN ×4 (02:39→19:23)
--- NOTE | 2016-12-08 03:00 | NUR ---
MS RN NOTE IV GOT INFILTRATED, REINSERTED ON LEFT FA 22G. RECONNECT THE FLUID.
[2016-12-08] MEDS: METRONIDAZOLE 500 MG TABLET PO SCH ×3 (05:00→20:56)
[2016-12-08 05:58] LABS: CALCIUM, SERUM 7.8 mg/dL (8.5-10.1); CREATININE 1.8 mg/dL (0.6-1.3); MAGNESIUM 2.3 mg/dL (1.8-2.4); POTASSIUM 3.5 mmol/L (3.5-5.1)
[2016-12-08 05:59] LABS: EOSINOPHILS # (AUTO) 0.7 /CMM (0.0-0.7); EOSINOPHILS % (AUTO) 3.1 % (0.0-6.0); HEMATOCRIT 27 % (33-45); LYMPHOCYTES # (AUTO) 1.2 /CMM (0.8-4.8); MEAN CORPUSCULAR HEMOGLOBIN 35 PG (26.0-33.0); MEAN CORPUSCULAR HGB CONC 34 g/dl (31.0-36.0); MEAN CORPUSCULAR VOLUME 104 fL (82-100); MONOCYTES # (AUTO) 1.2 /CMM (0.1-1.30); MONOCYTES % (AUTO) 5.9 % (2.0-12.0); NEUTROPHILS # (AUTO) 17.7 /CMM (1.8-8.9); PLATELET COUNT (AUTO) 166 /CMM (150-450); RDW COEFFICIENT OF VARIATION 18.4 (11.5-15.0); RED BLOOD CELL COUNT(AUTO) 2.55 MIL/uL (4.0-5.2); WHITE BLOOD COUNT (AUTO) 20.8 K/uL (4.3-11.0)
--- NOTE | 2016-12-08 06:41 | NUR ---
MS RN NOTE PATIENT IS SLEEPING IN BED COMFORTABLY, NO ACUTE DISTRESS NOTED AT THIS TIME. IV ON LEFT FA IS PATENT AND INTACT, FLUID IS RUNNING. WILL ENDORSE TO DAY SHIFT NURSE FOR GEOVANNY.
[2016-12-08 08:00] VITALS: BP 97/53
--- NOTE | 2016-12-08 08:15 | NUR ---
MS RN NOTES RECEIVED PATIENT IN BED, AWAKE. A/O X4. BREATHING EVEN AND NON LABORED. ABDOMEN STILL DISTENDED, NO FLUID DRAINAGE ON THE COLOSTOMY BAG, C/O ABDOMINAL PAIN 8 MEDICATED WITH PRN MORPHINE 2MG IV, WILL REASSESS. PLACE CALL LIGHT WITHIN REACH, WILL CONT TO MONITOR.
[2016-12-08 08:35] LABS: BAND % (MANUAL) 3 % (0.0-5.0); EOSINOPHILS % (MANUAL) 3 % (0-4); LYMPHOCYTES % (MANUAL) 4 % (16-48); MONOCYTES % (MANUAL) 2 % (0-11.0); NEUTROPHILS % (MANUAL) 88 (42-76)
[2016-12-08] MEDS: CYANOCOBALAMIN 100 MCG TABLET PO SCH (08:47)
[2016-12-08] MEDS: LACTULOSE 10 G/15 ML UDC (PYXIS) PO SCH (08:47)
[2016-12-08] MEDS: PANTOPRAZOLE 40 MG TABLET.DR PO SCH ×2 (08:47→20:56)
[2016-12-08] MEDS: FOLIC ACID 1 MG TABLET PO SCH (08:47)
[2016-12-08] MEDS: PENTOXIFYLLINE 400 MG TABLET.SA PO SCH ×2 (08:52→16:09)
--- NOTE | 2016-12-08 15:02 | NUR ---
COSME met with pt. bedside to discuss discharge plan along with director of casework department Radha Maldonado. Pt. was uncooperative and requested for SW to come back later. SW informed pt. she will be back tomorrow to discuss discharge plan.
[2016-12-08 16:00] VITALS: BP 97/50
[2016-12-08] MEDS: HYDROCODONE/APAP 5/325MG 1 EACH TABLET PO PRN ×2 (16:14→21:00)
--- NOTE | 2016-12-08 19:32 | NUR ---
MS RN CLOSING NOTES PATIENT IN BED, A/O X4. IV IN RIGHT AC G22 PATENT AND INTACT, IV NS INFUSING AT 75ML/HR, TOLERATING WELL. NO SOB. HAD BOWEL MOVEMENT TODAY X3, MOD AMT. SOFT BROWN STOOL. ON ANTIBIOTIC WITH NO ADVERSE SIDE EFFECT, AFEBRILE. PATIENT IS SEEN BY VINCE GARRISON, WILL COLLECT URINE FOR URINE CULTURE ORDERED. ENDORSED TO DIRECTOR OF PHYSICAL THERAPY RN FOR GEOVANNY.
--- NOTE | 2016-12-08 19:35 | NUR ---
MS RN NOTE RECEIVED PATIENT FROM DAY SHIFT, PATIENT IS ALERT AND ORIENTEDX3, DENIES RESPIRATORY DISTRESS, COMPLAINS OF ABDOMINAL PAIN. LEFT FA AND RIGHT AC IV ACCESS ARE PATENT AND INTACT, FLUID IS RUNNING. SRX2, BED IN LOW POSITION, CALL LIGHT WITHIN REACH, WILL CONTINUE TO MONITOR PATIENT.
[2016-12-08 21:07] VITALS: BP 93/54
[2016-12-09] MEDS ORDERED: MORPHINE SULFATE INJ 2 MG/ML DISP.SYRIN ONE (01:13)
[2016-12-09] MEDS: IV NS 0.9% 1,000 ML IV PRN (01:18)
[2016-12-09] MEDS: MORPHINE SULFATE INJ 2 MG/ML DISP.SYRIN IV PRN (01:18)
[2016-12-09] MEDS: METRONIDAZOLE 500 MG TABLET PO SCH ×3 (04:57→20:51)
[2016-12-09] MEDS: HYDROCODONE/APAP 5/325MG 1 EACH TABLET PO PRN ×4 (05:14→20:51)
[2016-12-09 06:25] LABS: HEMATOCRIT 27 % (33-45); MEAN CORPUSCULAR HEMOGLOBIN 35 PG (26.0-33.0); MEAN CORPUSCULAR HGB CONC 34 g/dl (31.0-36.0); MEAN CORPUSCULAR VOLUME 104 fL (82-100); PLATELET COUNT (AUTO) 187 /CMM (150-450); RDW COEFFICIENT OF VARIATION 18.3 (11.5-15.0); RED BLOOD CELL COUNT(AUTO) 2.58 MIL/uL (4.0-5.2); WHITE BLOOD COUNT (AUTO) 24.6 K/uL (4.3-11.0)
--- NOTE | 2016-12-09 06:33 | NUR ---
MS RN NOTE PATIENT IS RESTING IN BED, NO ACUTE DISTRESS NOTED THROUGHOUT THE SHIFT. DUE MEDS GIVEN, AND PAIN MANAGEMENT RENDERED PER PATIENT'S REQUEST. IV ON RIGHT FA AND LEFT FA ARE PATENT AND INTACT, FLUID IS RUNNING. WILL ENDORSE TO DAY SHIFT NURSE FOR GEOVANNY.
[2016-12-09 06:47] LABS: CREATININE 2.2 mg/dL (0.6-1.3); MAGNESIUM 2.2 mg/dL (1.8-2.4); PHOSPHORUS 3.2 mg/dL (2.5-4.9); POTASSIUM 3.2 mmol/L (3.5-5.1)
--- NOTE | 2016-12-09 07:30 | NUR ---
RN MS NOTES PATIENT ALERT AND ORIENTED X3, BREATHING EVEN AND UNLABORED, NO DISTRESS NOTED, DENIES PAIN AT THIS TIME, NEEDS ATTENDED, SAFETY MEASURES IN PLACED, CALL LIGHT WITHIN REACH, WILL CONTINUE TO MONITOR.
[2016-12-09 08:00] VITALS: BP 101/53
[2016-12-09] MEDS: CYANOCOBALAMIN 100 MCG TABLET PO SCH (09:09)
[2016-12-09] MEDS: PANTOPRAZOLE 40 MG TABLET.DR PO SCH ×2 (09:09→20:51)
[2016-12-09] MEDS: FOLIC ACID 1 MG TABLET PO SCH (09:09)
[2016-12-09] MEDS: PENTOXIFYLLINE 400 MG TABLET.SA PO SCH ×2 (09:09→16:50)
[2016-12-09] MEDS: LACTULOSE 10 G/15 ML UDC (PYXIS) PO SCH (09:10)
[2016-12-09 10:04] LABS: BAND % (MANUAL) 3 % (0.0-5.0); EOSINOPHILS % (MANUAL) 3 % (0-4); LYMPHOCYTES % (MANUAL) 8 % (16-48); MONOCYTES % (MANUAL) 8 % (0-11.0); NEUTROPHILS % (MANUAL) 78 (42-76)
[2016-12-09] MEDS ORDERED: POTASSIUM CHLORIDE 20 MEQ TAB.PRT.SR PO SCH (10:30)
[2016-12-09] MEDS: ONDANSETRON HCL/PF 4 MG/2 ML VIAL IVP SCH ×2 (12:42→18:00)
[2016-12-09] MEDS ORDERED: POTASSIUM CHLORIDE 10 MEQ TABLET.SA PO ONE (13:30)
[2016-12-09] MEDS ORDERED: POTASSIUM CHLORIDE 10 MEQ TABLET.SA PO SCH (13:30)
[2016-12-09 16:00] VITALS: BP 96/52
--- NOTE | 2016-12-09 18:51 | NUR ---
RN MS NOTES PATIENT ASLEEP BUT EASILY AROUSABLE, DENIES PAIN OR DISCOMFORT, NO N/V COMPLAINT AT THIS TIME, STILL NEEDS STOOL SAMPLE, PATIENT HAD NO BM DURING THIS SHIFT, NEEDS ATTENDED AND MET, SAFETY MEASURES IN PLACED, CALL LIGHT WITHIN REACH, WILL ENDORSE TO POWERHOUSE ENGINEER FOR GEOVANNY.
--- NOTE | 2016-12-09 19:30 | NUR ---
RN NOTES RECEIVED PATIENT IN BED EYES CLOSED; EASILY AROUSABLE. AO X 3, ABLE TO MAKE NEEDS KNOWN. NO ACUTE DISTRESS NOTED. WILL CONTINUE TO MONITOR FOR PAIN. IV SITE PATENT, INTACT; FLUSHED. SAFETY REMINDERS GIVEN. ON LOW BED WITH BILATERAL UPPER SIDE RAILS UP. CALL LIGHT WITHIN EASY REACH. WILL CONTINUE TO MONITOR.
[2016-12-09 20:00] VITALS: BP 98/48
--- NOTE | 2016-12-09 23:16 | NUR ---
RN NOTES RECEIVED PATIENT IN BED EYES CLOSED; EASILY AROUSABLE. AO X 3, ABLE TO MAKE NEEDS KNOWN. NO ACUTE DISTRESS NOTED. WILL CONTINUE TO MONITOR FOR PAIN. IV SITE PATENT, INTACT; FLUSHED. SAFETY REMINDERS GIVEN. ON LOW BED WITH BILATERAL UPPER SIDE RAILS UP. CALL LIGHT WITHIN EASY REACH. WILL CONTINUE TO MONITOR. Addendum: 12/10/16 at 0242 by ANA SORIANO RN FOR TIME [id number]
[2016-12-10] MEDS: ONDANSETRON HCL/PF 4 MG/2 ML VIAL IVP SCH ×4 (00:30→17:27)
[2016-12-10] MEDS: METRONIDAZOLE 500 MG TABLET PO SCH ×3 (05:12→20:20)
[2016-12-10] MEDS: HYDROCODONE/APAP 5/325MG 1 EACH TABLET PO PRN ×4 (05:34→17:27)
--- NOTE | 2016-12-10 06:15 | NUR ---
RN NOTES PATIENT ASLEEP, EASILY AROUSABLE. RESPIRATIONS EVEN. NO SIGNS OF PAIN NOTED. DUE MEDS GIVEN WITH NO ASE NOTED. NEEDS ATTENDED. SAFETY PRECAUTIONS AND COMFORT MEASURES IN PLACE. WILL GIVE REPORT TO DAY SHIFT FOR CONTINUITY OF CARE.
[2016-12-10 06:48] LABS: HEMATOCRIT 29 % (33-45); HEMOGLOBIN 9.8 g/dL (11.5-14.8); MEAN CORPUSCULAR HEMOGLOBIN 35 PG (26.0-33.0); MEAN CORPUSCULAR HGB CONC 34 g/dl (31.0-36.0); MEAN CORPUSCULAR VOLUME 104 fL (82-100); PLATELET COUNT (AUTO) 147 /CMM (150-450); RDW COEFFICIENT OF VARIATION 18.4 (11.5-15.0); WHITE BLOOD COUNT (AUTO) 27.4 K/uL (4.3-11.0)
[2016-12-10 07:04] LABS: CALCIUM, SERUM 8.5 mg/dL (8.5-10.1); CREATININE 2.6 mg/dL (0.6-1.3); MAGNESIUM 2.4 mg/dL (1.8-2.4); PHOSPHORUS 3.9 mg/dL (2.5-4.9); POTASSIUM 3.6 mmol/L (3.5-5.1)
--- NOTE | 2016-12-10 07:10 | NUR ---
RN NOTES PT IS IN BED, SLEEPING COMFORTABLY. PT ON RA, RESPIRATIONS ARE EVEN AND UNLABORED. IV ON LFA AND RAC, INTACT AND PATENT, SL. SAFETY MEASURES ARE IN PLACE, CALL LIGHT IS IN REACH. WILL CONTINUE TO MONITOR.
[2016-12-10 07:30] LABS: IRON, SERUM 18 ug/dl (50-175); TOTAL IRON BINDING CAPACITY 132 ug/dl (250-450)
[2016-12-10 07:39] LABS: FERRITIN 101 ng/mL (8-388)
[2016-12-10 08:00] VITALS: BP 88/46
[2016-12-10 08:15] VITALS: BP 88/46
[2016-12-10] MEDS: FOLIC ACID 1 MG TABLET PO SCH (08:28)
[2016-12-10] MEDS: CYANOCOBALAMIN 100 MCG TABLET PO SCH (08:28)
[2016-12-10] MEDS: PENTOXIFYLLINE 400 MG TABLET.SA PO SCH ×2 (08:28→17:27)
[2016-12-10] MEDS: LACTULOSE 10 G/15 ML UDC (PYXIS) PO SCH (08:28)
[2016-12-10] MEDS: PANTOPRAZOLE 40 MG TABLET.DR PO SCH ×2 (08:28→20:20)
[2016-12-10 09:50] LABS: BAND % (MANUAL) 5 % (0.0-5.0); LYMPHOCYTES % (MANUAL) 1 % (16-48); MONOCYTES % (MANUAL) 6 % (0-11.0); NEUTROPHILS % (MANUAL) 88 (42-76)
[2016-12-10] MEDS: IV NS 0.9% 1,000 ML IV SCH (13:28)
[2016-12-10 13:56] LABS: AMYLASE 90 U/L (25-115); LIPASE 362 U/L (73-393)
[2016-12-10 13:57] LABS: SERUM AMMONIA 11 umol/L (11-32)
[2016-12-10 16:00] VITALS: BP 83/42
--- NOTE | 2016-12-10 18:38 | NUR ---
RN NOTES PT IS IN BED, SLEEPING INTERMITTENTLY. PT ON RA, RESPIRATIONS ARE EVEN AND UNLABORED. IV ON RAC INTACT AND SL, IV ON LFA INTACT AND RUNNING NS @ 75ML/HR. ALL MEDS WERE GIVEN ORDERED. UNABLE TO COLLECT SAMPLE FOR OCCULT STOOL DUE TO PT URINATING IN STOOL. PT REFUSED TO BE CLEANED, BUT IS ABLE TO PERFORM SELF CARE. SAFETY MEASURES ARE IN PLACE, CALL LIGHT IS IN REACH. WILL ENDORSE TO RIDDLER OPERATOR RN FOR CONTINUITY OF CARE.
--- NOTE | 2016-12-10 19:30 | NUR ---
RN NOTES RECEIVED PATIENT IN BED AWAKE. AO X 3, ABLE TO MAKE NEEDS KNOWN. NO ACUTE DISTRESS NOTED. WILL CONTINUE TO MONITOR FOR PAIN. IV SITE PATENT, INTACT; IVF INFUSING ORDERED. SAFETY REMINDERS GIVEN. ON LOW BED WITH BILATERAL UPPER SIDE RAILS UP. CALL LIGHT WITHIN EASY REACH. WILL CONTINUE TO MONITOR.
[2016-12-10 20:00] VITALS: BP 89/49
[2016-12-10 20:35] VITALS: BP 89/49
[2016-12-11] MEDS: HYDROCODONE/APAP 5/325MG 1 EACH TABLET PO PRN ×5 (00:04→21:36)
[2016-12-11] MEDS: ONDANSETRON HCL/PF 4 MG/2 ML VIAL IVP SCH ×5 (00:05→23:52)
[2016-12-11] MEDS: IV NS 0.9% 1,000 ML IV SCH ×2 (02:36→16:00)
[2016-12-11] MEDS: METRONIDAZOLE 500 MG TABLET PO SCH ×3 (05:41→21:31)
--- NOTE | 2016-12-11 06:41 | NUR ---
RN NOTES PATIENT ASLEEP. RESPIRATIONS EVEN. NO SIGNS OF PAIN NOTED. DUE MEDS GIVEN WITH NO ASE NOTED. NEEDS ATTENDED. SAFETY PRECAUTIONS AND COMFORT MEASURES IN PLACE. WILL GIVE REPORT TO DAY SHIFT FOR CONTINUITY OF CARE.
--- NOTE | 2016-12-11 07:40 | NUR ---
RN NOTES RECEIVED PATIENT RESTING IN BED AWAKE, APPEARS CALM AND COMFORTABLE, IN NO APPARENT DISTRESS. RESPIRATORY STATUS STABLE, ON ROOM AIR. PATIENT PRESENTS WITH ASCITES, JAUNDICE D/T DISEASE PROCESS C/O ABDOMINAL PAIN 04/24 CURRENTLY MANAGED WITH NORCO. IV RO RIGHT AC INFUSING NS AT 75CC/HR. SAFETY MEASURES RENDERED, CALL LIGHT PLACED WITHIN EASY REACH. WILL CONTINUE TO MONITOR.
[2016-12-11 08:00] VITALS: BP_SYST 80; BP_SYST 88; BP_DIAS 38; BP_DIAS 46
[2016-12-11] MEDS: LACTULOSE 10 G/15 ML UDC (PYXIS) PO SCH (08:09)
[2016-12-11] MEDS: PENTOXIFYLLINE 400 MG TABLET.SA PO SCH ×2 (08:10→17:19)
[2016-12-11] MEDS: CYANOCOBALAMIN 100 MCG TABLET PO SCH (08:10)
[2016-12-11] MEDS: FOLIC ACID 1 MG TABLET PO SCH (08:10)
[2016-12-11] MEDS: PANTOPRAZOLE 40 MG TABLET.DR PO SCH ×2 (08:11→21:31)
[2016-12-11] MEDS ORDERED: LACTULOSE UDC 200 G in SODIUM CHLORIDE IRRIG SOLUTION 400 ML IR PRN (10:30)
[2016-12-11 11:10] LABS: EOSINOPHILS # (AUTO) 0.3 /CMM (0.0-0.7); EOSINOPHILS % (AUTO) 1.4 % (0.0-6.0); HEMATOCRIT 26 % (33-45); HEMOGLOBIN 8.6 g/dL (11.5-14.8); LYMPHOCYTES % (AUTO) 4.2 % (20.0-44.0); MEAN CORPUSCULAR HEMOGLOBIN 34 PG (26.0-33.0); MEAN CORPUSCULAR HGB CONC 33 g/dl (31.0-36.0); MEAN CORPUSCULAR VOLUME 103 fL (82-100); MONOCYTES # (AUTO) 1.1 /CMM (0.1-1.30); MONOCYTES % (AUTO) 4.6 % (2.0-12.0); NEUTROPHILS # (AUTO) 20.7 /CMM (1.8-8.9); NEUTROPHILS % (AUTO) 89.8 % (43.0-81.0); PLATELET COUNT (AUTO) 186 /CMM (150-450); RDW COEFFICIENT OF VARIATION 18.1 (11.5-15.0); RED BLOOD CELL COUNT(AUTO) 2.49 MIL/uL (4.0-5.2)
[2016-12-11 11:32] LABS: MAGNESIUM 2.2 mg/dL (1.8-2.4); POTASSIUM 3.3 mmol/L (3.5-5.1)
--- NOTE | 2016-12-11 12:23 | NUR ---
MS/RN NOTES DISCUSSED PLAN OF CARE WITH MEDICATION TECH, PATIENT AWARE OF FINDINGS , AGREED TO PROPOSED POT.
[2016-12-11 12:48] LABS: BAND % (MANUAL) 4 % (0.0-5.0); EOSINOPHILS % (MANUAL) 1 % (0-4); LYMPHOCYTES % (MANUAL) 2 % (16-48); MONOCYTES % (MANUAL) 6 % (0-11.0); NEUTROPHILS % (MANUAL) 87 (42-76)
[2016-12-11] MEDS: diphenhydrAMINE HCL 50 MG/ML VIAL IV PRN ×2 (13:33→21:36)
--- NOTE | 2016-12-11 13:36 | NUR ---
MS RN NOTE COVERING FOR VIOLETTA TURCIOS. ADMINISTERED PRN MEDICATION PATIENT COMPLAINED OF ITCHING, DISCOMFORT.
[2016-12-11 16:00] VITALS: BP 80/46
[2016-12-11] MEDS ORDERED: POTASSIUM CHLORIDE 20 MEQ TAB.PRT.SR PO ONE (17:30)
--- NOTE | 2016-12-11 18:33 | NUR ---
MS/RN NOTES PATIENT RESTING IN BED COMFORTABLY, NO S/S OF DISTRESS/DISCOMFORT NOTED. ALL DUE MEDICATIONS GIVEN ALL NEEDS MET AND ATTENDED. IVF INFUSING WELL. PATIENTS PAIN MANAGED WITH NORCO 5-325MG EVERY 4 HOURS. BENADRYL GIVEN FOR GENERALIZED RASH/ ITCHY. PATIENT HAS BEEN IN BED THROUGHOUT THE DAY, USES THE BEDSIDE COMMODE FOR ELIMINATION. SAFETY MEASURES RENDERED CALL LIGHT PLACED WITHIN REACH. WILL ENDORSE CARE TO SISAL OPERATOR FOR GEOVANNY.
--- NOTE | 2016-12-11 19:27 | NUR ---
NOTES ENDORSED MEDINA CATH PLACEMENT IF BLADDER SCAN SHOWS MORE THAN 300CC
[2016-12-11 20:00] VITALS: BP 91/51
[2016-12-11 20:57] VITALS: BP 91/51
[2016-12-12] MEDS: ONDANSETRON HCL/PF 4 MG/2 ML VIAL IVP SCH ×3 (05:03→17:22)
[2016-12-12] MEDS: HYDROCODONE/APAP 5/325MG 1 EACH TABLET PO PRN (05:04)
[2016-12-12] MEDS: METRONIDAZOLE 500 MG TABLET PO SCH ×3 (05:04→21:00)
[2016-12-12] MEDS: IV NS 0.9% 1,000 ML IV SCH ×2 (05:05→17:25)
[2016-12-12 08:00] VITALS: BP 76/44
--- NOTE | 2016-12-12 08:24 | NUR ---
RN MS NOTES PT SLEEPING IN BED. NO APPARENT S/S OF PAIN OR DISTRESS. WILL CONTINUE TO MONITOR. CALL LIGHT WITHIN REACH.
[2016-12-12] MEDS: PANTOPRAZOLE 40 MG TABLET.DR PO SCH ×2 (09:04→21:00)
[2016-12-12] MEDS: CYANOCOBALAMIN 100 MCG TABLET PO SCH (09:04)
[2016-12-12] MEDS: FOLIC ACID 1 MG TABLET PO SCH (09:04)
[2016-12-12] MEDS: PENTOXIFYLLINE 400 MG TABLET.SA PO SCH ×2 (09:04→17:22)
[2016-12-12] MEDS: LACTULOSE 10 G/15 ML UDC (PYXIS) PO SCH (09:04)
--- NOTE | 2016-12-12 10:30 | NUR ---
RN MS NOTES PT IN BED, AWAKE, ALERT AND ORIENTED. ASSISTED TO BEDSIDE COMMODE NEEDED, NOT IN DISTRESS, RONALDO INCINERATOR ATTENDANT INFORMED OF PT'S LOW BP, ORDERS GIVEN AND CARRIED OUT, WILL CONTINUE TO MONITOR PT.
[2016-12-12 12:01] LABS: BASOPHILS % (AUTO) 0.2 % (0.0-2.0); EOSINOPHILS # (AUTO) 0.1 /CMM (0.0-0.7); EOSINOPHILS % (AUTO) 0.5 % (0.0-6.0); HEMATOCRIT 27 % (33-45); HEMOGLOBIN 8.8 g/dL (11.5-14.8); LYMPHOCYTES # (AUTO) 2.1 /CMM (0.8-4.8); LYMPHOCYTES % (AUTO) 8.9 % (20.0-44.0); MEAN CORPUSCULAR HEMOGLOBIN 35 PG (26.0-33.0); MEAN CORPUSCULAR HGB CONC 33 g/dl (31.0-36.0); MEAN CORPUSCULAR VOLUME 105 fL (82-100); MONOCYTES # (AUTO) 1.1 /CMM (0.1-1.30); MONOCYTES % (AUTO) 4.9 % (2.0-12.0); NEUTROPHILS # (AUTO) 19.9 /CMM (1.8-8.9); NEUTROPHILS % (AUTO) 85.5 % (43.0-81.0); PLATELET COUNT (AUTO) 200 /CMM (150-450); RED BLOOD CELL COUNT(AUTO) 2.55 MIL/uL (4.0-5.2); WHITE BLOOD COUNT (AUTO) 23.3 K/uL (4.3-11.0)
[2016-12-12 12:16] LABS: CREATININE 3.4 mg/dL (0.6-1.3); POTASSIUM 3.3 mmol/L (3.5-5.1)
[2016-12-12 12:34] LABS: ALBUMIN 1.3 g/dL (3.4-5.0)
--- NOTE | 2016-12-12 12:39 | NUR ---
RN MS NOTES RECEIVED LAB RESULT FOR ALBUMIN 1.3, INFORMED RONALDO COTTER, WILL PUT IN ORDERS.
[2016-12-12 12:42] VITALS: BP 87/46
--- NOTE | 2016-12-12 12:45 | NUR ---
RN MS NOTES PT BP 87/46, ELEVATED BLE, NO COMPLAINT FROM PT. WILL CONTINUE TO MONITOR.
[2016-12-12] MEDS: ALBUMIN 25% 25 GM in PREMIX 1 EA IV SCH ×2 (13:50→18:38)
[2016-12-12 14:31] LABS: EOSINOPHILS % (MANUAL) 1 % (0-4); LYMPHOCYTES % (MANUAL) 5 % (16-48); MONOCYTES % (MANUAL) 2 % (0-11.0); NEUTROPHILS % (MANUAL) 92 (42-76)
[2016-12-12 16:00] VITALS: BP 80/42
--- NOTE | 2016-12-12 18:11 | NUR ---
RN CLOSING NOTES PT RESTING IN BED. PT BP HAS BEEN AROUND 78-83/42-44. MD MADE AWARE. ELEVATED PT FEET, ENCOURAGED FLUID AND TO EAT. ALBUMIN HAS BEGUN TO BE REPLACED. KEPT PT COMFORTABLE, AND CALM. CALL LIGHT WITHIN REACH.
[2016-12-12 20:00] VITALS: BP_SYST 88; BP_DIAS 40; BP_DIAS 42
[2016-12-13] MEDS: ONDANSETRON HCL/PF 4 MG/2 ML VIAL IVP SCH ×4 (00:36→17:25)
[2016-12-13] MEDS: ALBUMIN 25% 25 GM in PREMIX 1 EA IV SCH ×2 (00:37→06:07)
[2016-12-13] MEDS: METRONIDAZOLE 500 MG TABLET PO SCH ×3 (05:04→21:44)
--- NOTE | 2016-12-13 06:26 | NUR ---
RN NOTES PATIENT ASLEEP. RESPIRATIONS EVEN. NO SIGNS OF PAIN NOTED. DUE MEDS GIVEN WITH NO ASE NOTED. NEEDS ATTENDED. SAFETY PRECAUTIONS AND COMFORT MEASURES IN PLACE. BLADDER SCAN = 100 ML AT 2200 AND 0 ML AT 0600. WILL GIVE REPORT TO DAY SHIFT FOR CONTINUITY OF CARE.
[2016-12-13] MEDS: IV NS 0.9% 1,000 ML IV SCH ×2 (06:48→21:43)
--- NOTE | 2016-12-13 07:30 | NUR ---
RN MS NOTES PT IN BED, ASLEEP, EASY TO AROUSE, NO COMPLAINT OF PAIN AT THIS TIME, BREATHING PATTERN NORMAL, CALL LIGHT WITHIN REACH, IV FLUIDS INFUSING WELL.
[2016-12-13 08:00] VITALS: BP 90/53
[2016-12-13 09:09] LABS: CALCIUM, SERUM 8.1 mg/dL (8.5-10.1); CREATININE 3.4 mg/dL (0.6-1.3); MAGNESIUM 2.2 mg/dL (1.8-2.4); PHOSPHORUS 3.9 mg/dL (2.5-4.9); POTASSIUM 3.2 mmol/L (3.5-5.1)
[2016-12-13 09:10] LABS: BASOPHILS # (AUTO) 0.1 /CMM (0.0-0.2); BASOPHILS % (AUTO) 0.8 % (0.0-2.0); EOSINOPHILS # (AUTO) 0.3 /CMM (0.0-0.7); EOSINOPHILS % (AUTO) 1.8 % (0.0-6.0); HEMATOCRIT 21 % (33-45); LYMPHOCYTES # (AUTO) 0.9 /CMM (0.8-4.8); LYMPHOCYTES % (AUTO) 5.8 % (20.0-44.0); MEAN CORPUSCULAR HEMOGLOBIN 34 PG (26.0-33.0); MEAN CORPUSCULAR HGB CONC 33 g/dl (31.0-36.0); MEAN CORPUSCULAR VOLUME 104 fL (82-100); MONOCYTES # (AUTO) 0.8 /CMM (0.1-1.30); MONOCYTES % (AUTO) 5.6 % (2.0-12.0); NEUTROPHILS # (AUTO) 12.6 /CMM (1.8-8.9); PLATELET COUNT (AUTO) 150 /CMM (150-450); RDW COEFFICIENT OF VARIATION 17.9 (11.5-15.0); RED BLOOD CELL COUNT(AUTO) 2.01 MIL/uL (4.0-5.2); WHITE BLOOD COUNT (AUTO) 14.7 K/uL (4.3-11.0)
[2016-12-13 09:30] LABS: HEMOGLOBIN 6.9 g/dL (11.5-14.8)
[2016-12-13] MEDS: LACTULOSE 10 G/15 ML UDC (PYXIS) PO SCH (10:21)
[2016-12-13] MEDS: PENTOXIFYLLINE 400 MG TABLET.SA PO SCH ×2 (10:21→16:44)
[2016-12-13] MEDS: FOLIC ACID 1 MG TABLET PO SCH (10:21)
[2016-12-13] MEDS: PANTOPRAZOLE 40 MG TABLET.DR PO SCH ×2 (10:21→21:44)
[2016-12-13] MEDS: CYANOCOBALAMIN 100 MCG TABLET PO SCH (10:21)
[2016-12-13 12:06] LABS: BAND % (MANUAL) 2 % (0.0-5.0); EOSINOPHILS % (MANUAL) 5 % (0-4); LYMPHOCYTES % (MANUAL) 5 % (16-48); MONOCYTES % (MANUAL) 3 % (0-11.0); NEUTROPHILS % (MANUAL) 85 (42-76)
--- NOTE | 2016-12-13 13:00 | NUR ---
RN MS NOTES PT IN BED, AWAKE, NOT IN DISTRESS, IV FLUIDS INFUSING WELL, NOTED WITH LOW H/H/, RONALDO BRANCH COORDINATOR MADE AWARE, ORDERED I UNIT PRBC, PT INFORMED, CONSENT GIVEN, PT ABLE TO URINATE WITH SMALL AMOUNT, ENCOURAGED INCREASED PO INTAKE, VERBALIZED UNDERSTANDING.
[2016-12-13 14:54] VITALS: BP 83/46
--- NOTE | 2016-12-13 15:02 | NUR ---
RN MS NOTES BLOOD TRANSFUSION STARTED, PT'S VITAL SIGNS STABLE, PT RESTING, NO COMPLAINT AT THIS TIME, WILL CONTINUE TO MONITOR.
[2016-12-13 15:15] VITALS: BP 87/46
[2016-12-13 16:00] VITALS: BP 88/48
[2016-12-13] MEDS ORDERED: POTASSIUM CHLORIDE 20 MEQ TAB.PRT.SR PO ONE (16:00)
[2016-12-13 17:46] VITALS: BP 84/53
[2016-12-13] MEDS: HYDROCODONE/APAP 5/325MG 1 EACH TABLET PO PRN (18:27)
--- NOTE | 2016-12-13 19:00 | NUR ---
RN MS NOTES PT IN BED, AWAKE, ALERT AND ORIENTED, ASSISTED TO BEDSIDE COMMODE NEEDED, S/P 1 UNIT PRBC, TOLERATED WELL, PER RONALDO SCRIBING MACHINE OPERATOR, OK TO GIVE NORCO, ASSISTED WITH MEALS, IV FLUIDS INFUSING WELL, ALL NEEDS ATTENDED.
--- NOTE | 2016-12-13 19:35 | NUR ---
MS RN INITIAL NOTES PT IS IN BED RESTING, A/O X3 ABLE TO MAKE NEEDS KNOW. PT IS JAUNDICE. NO SIGNS OF SOB OR DISTRESS, BREATHING EVENLY AND UNLABORED ON ROOM AIR. COMMODE AT BEDSIDE. IV ACCESS IS INTACT. MONITOR BP. BED IS IN LOW AND LOCKED POSITION, CALL LIGHT IS WITHIN REACH. WILL CONTINUE TO MONITOR PT
[2016-12-13 20:00] VITALS: BP 75/43
--- NOTE | 2016-12-13 21:00 | NUR ---
DR TIRADO WAS PAGED REGARDING PTS BP. STAT CBC WAS ORDERED.
[2016-12-13 21:27] LABS: BASOPHILS # (AUTO) 0.1 /CMM (0.0-0.2); BASOPHILS % (AUTO) 0.5 % (0.0-2.0); HEMATOCRIT 26 % (33-45); HEMOGLOBIN 8.6 g/dL (11.5-14.8); LYMPHOCYTES # (AUTO) 0.8 /CMM (0.8-4.8); MEAN CORPUSCULAR HEMOGLOBIN 32 PG (26.0-33.0); MEAN CORPUSCULAR HGB CONC 33 g/dl (31.0-36.0); MEAN CORPUSCULAR VOLUME 98 fL (82-100); MONOCYTES # (AUTO) 0.6 /CMM (0.1-1.30); MONOCYTES % (AUTO) 3.3 % (2.0-12.0); NEUTROPHILS # (AUTO) 17.8 /CMM (1.8-8.9); NEUTROPHILS % (AUTO) 92.2 % (43.0-81.0); PLATELET COUNT (AUTO) 155 /CMM (150-450); RDW COEFFICIENT OF VARIATION 22.4 (11.5-15.0); RED BLOOD CELL COUNT(AUTO) 2.68 MIL/uL (4.0-5.2); WHITE BLOOD COUNT (AUTO) 19.3 K/uL (4.3-11.0)
--- NOTE | 2016-12-13 22:00 | NUR ---
PT REFUSING BLADDER SCAN. EDUCATION GIVEN. PT IS URINATING A LITTLE ON HER OWN. WILL CONTINUE TO MONITOR
[2016-12-13 22:14] LABS: BAND % (MANUAL) 12 % (0.0-5.0); LYMPHOCYTES % (MANUAL) 3 % (16-48); MONOCYTES % (MANUAL) 3 % (0-11.0); NEUTROPHILS % (MANUAL) 82 (42-76)
[2016-12-14] MEDS: ONDANSETRON HCL/PF 4 MG/2 ML VIAL IVP SCH ×5 (00:06→23:35)
[2016-12-14 04:00] VITALS: BP 76/40
[2016-12-14] MEDS: METRONIDAZOLE 500 MG TABLET PO SCH ×3 (05:03→20:51)
[2016-12-14] MEDS: IV NS 0.9% 1,000 ML IV SCH ×2 (05:37→17:12)
--- NOTE | 2016-12-14 06:17 | NUR ---
PT IS IN BED RESTING, A/O X3 ABLE TO MAKE NEEDS KNOWN. NO SIGNS OF SOB OR DISTRESS. BREATHING EVENLY AND UNLABORED ON RA. FLUIDS GOT INCREASED TO 100 ML/HR. PT BP IS STILL LOW 76/40, ASYMPTOMATIC. PT AGREED TO AM BLADDER SCAN, SCANNER IS BROKEN. UNABLE TO ASSESS VOLUME OF BLADDER. ALL NEEDS WERE ANTICIPATED AND MET.COMMODE AT BEDSIDE. BED IS IN LOW AND LOCKED POSITION, CALL LIGHT WITHIN REACH. WILL ENDORSE TO DAYSHIFT
--- NOTE | 2016-12-14 07:25 | NUR ---
RN OPENING NOTES RECEIVED PATIENT IN BED RESTING. A/OX3 ABLE TO MAKE NEEDS KNOWN. NO ACUTE DISTRESS, NO SOB NOTED. DENIES PAIN AT THE MOMENT. JAUNDICE NOTED. BLE EDEMA +3 NOTED, BLE ELEVATED. IV SITE INTACT AND PATENT, INFUSING FLUID @ 100 ML/HR. KEPT PATIENT SAFE AND COMFORTABLE. BED IN LOW POSITION, LOCKED, SIDERAILS UPX2. WILL CONTINUE TO MONITOR ACCORDINGLY.
[2016-12-14 08:00] VITALS: BP 98/51
[2016-12-14 08:07] LABS: IMMUNOGLOBULIN A, SERUM 285 mg/dL (87-352); IMMUNOGLOBULIN G, SERUM 654 mg/dL (700-1600); IMMUNOGLOBULIN M, SERUM 134 mg/dL (26-217)
[2016-12-14 08:19] LABS: BASOPHILS % (AUTO) 0.1 % (0.0-2.0); HEMATOCRIT 25 % (33-45); HEMOGLOBIN 8.3 g/dL (11.5-14.8); LYMPHOCYTES % (AUTO) 4.4 % (20.0-44.0); MEAN CORPUSCULAR HEMOGLOBIN 33 PG (26.0-33.0); MEAN CORPUSCULAR HGB CONC 34 g/dl (31.0-36.0); MEAN CORPUSCULAR VOLUME 98 fL (82-100); MONOCYTES # (AUTO) 0.8 /CMM (0.1-1.30); MONOCYTES % (AUTO) 3.5 % (2.0-12.0); NEUTROPHILS # (AUTO) 20.2 /CMM (1.8-8.9); PLATELET COUNT (AUTO) 149 /CMM (150-450); RDW COEFFICIENT OF VARIATION 22.9 (11.5-15.0); RED BLOOD CELL COUNT(AUTO) 2.54 MIL/uL (4.0-5.2)
[2016-12-14 08:32] LABS: ALBUMIN 2.2 g/dL (3.4-5.0); CALCIUM, SERUM 8.1 mg/dL (8.5-10.1); CREATININE 3.8 mg/dL (0.6-1.3); MAGNESIUM 2.1 mg/dL (1.8-2.4); PHOSPHORUS 3.7 mg/dL (2.5-4.9); POTASSIUM 3.5 mmol/L (3.5-5.1)
[2016-12-14] MEDS: PANTOPRAZOLE 40 MG TABLET.DR PO SCH ×2 (09:07→20:51)
[2016-12-14] MEDS: PENTOXIFYLLINE 400 MG TABLET.SA PO SCH ×2 (09:07→17:16)
[2016-12-14] MEDS: CYANOCOBALAMIN 100 MCG TABLET PO SCH (09:07)
[2016-12-14] MEDS: FOLIC ACID 1 MG TABLET PO SCH (09:08)
[2016-12-14] MEDS: RIFAXIMIN 200 MG TABLET PO SCH ×3 (09:09→17:13)
[2016-12-14] MEDS: LACTULOSE 10 G/15 ML UDC (PYXIS) PO SCH (09:09)
[2016-12-14] MEDS: HYDROCODONE/APAP 5/325MG 1 EACH TABLET PO PRN ×3 (09:42→21:27)
--- NOTE | 2016-12-14 10:30 | NUR ---
RN NOTES FOUND A BUG ON PATIENT'S BED, SPECIMEN SENT TO LAB.
[2016-12-14 10:36] LABS: BAND % (MANUAL) 1 % (0.0-5.0); EOSINOPHILS % (MANUAL) 1 % (0-4); LYMPHOCYTES % (MANUAL) 4 % (16-48); NEUTROPHILS % (MANUAL) 94 (42-76)
[2016-12-14] MEDS ORDERED: IVERMECTIN 3 MG TABLET PO ONE (11:00)
[2016-12-14] MEDS ORDERED: PERMETHRIN 59 ML BOTTLE TP ONE (11:00)
[2016-12-14] MEDS ORDERED: PERMETHRIN 5% CRM 60 GM TUBE TP ONE (11:00)
[2016-12-14 11:26] LABS: INR 1.66 (0.87-1.13); PROTHROMBIN TIME 17.3 SECS (9.5-12.7)
[2016-12-14 16:00] VITALS: BP 90/58
--- NOTE | 2016-12-14 19:10 | NUR ---
RN CLOSING NOTES PATIENT IN BED RESTING. NO ACUTE DISTRESS, NO SOB NOTED. DENIES PAIN OR DISCOMFORT. ALL NEEDS ATTENDED AND PROVIDED. RECEIVED A CALL FROM PATHOLOGY, PATIENT IS POSITIVE FOR HEAD LICE, TREATMENT WAS DONE. PER STAGECRAFT PROFESSOR, NOT SAFE TO DO PARACENTESIS DUE TO MINIMAL FLUID. KEPT PATIENT SAFE AND COMFORTABLE. BED IN LOCKED, LOW POSITION, SIDERAILS UPX2. CALL LIGHT WITHIN REACH. ENDORSED TO NIGHT RN FOR GEOVANNY.
--- NOTE | 2016-12-14 19:40 | NUR ---
MS RN INITIAL NOTES PT IS IN BED RESTING, A/O X3 ABLE TO MAKE NEEDS KNOW. PT IS JAUNDICE. ISOLATION FOR HEAD LICE IN PLACE. PENDING STOOL TO RULE OUT C.DIFF. NO SIGNS OF SOB OR DISTRESS, BREATHING EVENLY AND UNLABORED ON ROOM AIR. COMMODE AT BEDSIDE. IV ACCESS IS INTACT. MONITOR BP. BED IS IN LOW AND LOCKED POSITION, CALL LIGHT IS WITHIN REACH. WILL CONTINUE TO MONITOR PT
[2016-12-14 20:00] VITALS: BP 97/72
--- NOTE | 2016-12-14 20:15 | NUR ---
HOSPICE EVAL NOTES GARO RUIZ FROM [facility] CAME TO EVALUATE PT. STATES SHE IS A CANDIDATE FOR HOSPICE AND WILL BE CONTACTING THE COUNCIL ON AGING DIRECTOR TOMORROW IN REGARDS TO IT
--- NOTE | 2016-12-14 23:30 | NUR ---
MAREN RN NOTES PT NOTED TO HAVE WHEEZING, 2L NC WAS PLACED. DR TIRADO WAS PAGED, AWAITING CALL BACK. WILL CONTINUE TO MONITOR PT
[2016-12-15] MEDS ORDERED: ALBUTEROL FS 2.5 MG/3 ML VIAL.NEB ONE (00:24)
--- NOTE | 2016-12-15 00:24 | NUR ---
MS VIOLETTA NOTES ALBUTEROL Q4H PRN WAS ORDERED AND TO BE GIVEN
[2016-12-15] MEDS ORDERED: ALBUTEROL SULFATE 8 GM HFA.AER.AD IH PRN (00:30)
[2016-12-15] MEDS ORDERED: ALBUTEROL FS 2.5 MG/3 ML VIAL.NEB NEB PRN (00:30)
--- NOTE | 2016-12-15 01:00 | NUR ---
RN NOTES STOOL WAS COLLECTED
[2016-12-15] MEDS: IV NS 0.9% 1,000 ML IV SCH ×2 (02:26→15:09)
[2016-12-15] MEDS: METRONIDAZOLE 500 MG TABLET PO SCH ×2 (05:25→12:33)
[2016-12-15] MEDS: ONDANSETRON HCL/PF 4 MG/2 ML VIAL IVP SCH ×3 (05:25→17:00)
[2016-12-15] MEDS: HYDROCODONE/APAP 5/325MG 1 EACH TABLET PO PRN ×2 (05:35→09:48)
--- NOTE | 2016-12-15 06:16 | NUR ---
MS RN CLOSING NOTES PT IS IN BED RESTING, A/O X3 ABLE TO MAKE NEEDS KNOWN. NO SIGNS OF SOB OR DISTRESS. BREATHING EVENLY AND UNLABORED ON RA. LICE PRECAUTIONS IN PLACE. STOOL FOR C DIFF COLLECTED. PENDING TRAFFIC LAW ATTORNEY FOR HOSPICE PLACEMENT . ALL NEEDS WERE ANTICIPATED AND MET.COMMODE AT BEDSIDE. BED IS IN LOW AND LOCKED POSITION, CALL LIGHT WITHIN REACH. WILL ENDORSE TO DAYSHIFT
[2016-12-15 06:44] LABS: EOSINOPHILS % (AUTO) 0.1 % (0.0-6.0); HEMATOCRIT 27 % (33-45); HEMOGLOBIN 8.9 g/dL (11.5-14.8); LYMPHOCYTES % (AUTO) 3.5 % (20.0-44.0); MEAN CORPUSCULAR HEMOGLOBIN 33 PG (26.0-33.0); MEAN CORPUSCULAR HGB CONC 34 g/dl (31.0-36.0); MEAN CORPUSCULAR VOLUME 99 fL (82-100); MONOCYTES # (AUTO) 0.8 /CMM (0.1-1.30); MONOCYTES % (AUTO) 2.8 % (2.0-12.0); NEUTROPHILS # (AUTO) 26.8 /CMM (1.8-8.9); NEUTROPHILS % (AUTO) 93.6 % (43.0-81.0); PLATELET COUNT (AUTO) 142 /CMM (150-450); RDW COEFFICIENT OF VARIATION 23.4 (11.5-15.0); WHITE BLOOD COUNT (AUTO) 28.7 K/uL (4.3-11.0)
[2016-12-15 07:24] LABS: CREATININE 4.2 mg/dL (0.6-1.3); MAGNESIUM 2.1 mg/dL (1.8-2.4); PHOSPHORUS 4.1 mg/dL (2.5-4.9); POTASSIUM 3.5 mmol/L (3.5-5.1)
--- NOTE | 2016-12-15 07:42 | NUR ---
RN: INITIAL NOTE RECEIVED PT A/OX3. ON MS. NO DISTRESS NOTED. NO SOB NOTED. NO PAIN NOTED. ON CONTACT ISOLATION FOR LICE. AMBULATES WITH ASSIST. SKIN IS JAUNDICE DUE TO LIVER CIRRHOSIS. ON SOFT DIET. LFA #22 RUNNING NS AT 100ML/HR. SITE CLEAR AND PATENT. RESTING COMFORTABLY IN BED. CALL LIGHT WITHIN REACH.
[2016-12-15 08:00] VITALS: BP 98/56
[2016-12-15 08:42] LABS: BAND % (MANUAL) 6 % (0.0-5.0); LYMPHOCYTES % (MANUAL) 1 % (16-48); MONOCYTES % (MANUAL) 3 % (0-11.0); NEUTROPHILS % (MANUAL) 90 (42-76)
[2016-12-15] MEDS: CYANOCOBALAMIN 100 MCG TABLET PO SCH (09:43)
[2016-12-15] MEDS: FOLIC ACID 1 MG TABLET PO SCH (09:43)
[2016-12-15] MEDS: LACTULOSE 10 G/15 ML UDC (PYXIS) PO SCH (09:43)
[2016-12-15] MEDS: PENTOXIFYLLINE 400 MG TABLET.SA PO SCH ×2 (09:43→16:55)
[2016-12-15] MEDS: RIFAXIMIN 200 MG TABLET PO SCH ×3 (09:43→16:55)
[2016-12-15] MEDS: PANTOPRAZOLE 40 MG TABLET.DR PO SCH ×2 (09:43→21:37)
[2016-12-15 12:12] LABS: *SPE A/G RATIO 1.5 (0.7-1.7); *SPE ALBUMIN 2.8 g/dL (2.9-4.4); *SPE ALPHA-1-GLOBULIN 0.3 g/dL (0.0-0.4); *SPE ALPHA-2-GLOBULIN 0.5 g/dL (0.4-1.0); *SPE BETA GLOBULIN 0.5 g/dL (0.7-1.3); *SPE GLOBULIN, TOTAL 1.9 g/dL (2.2-3.9); *SPE M-SPIKE Not Observed g/dL (Not Observed); *SPE PROTEIN TOTAL 4.7 g/dL (6.0-8.5); *SPEGAMMA GLOBULIN 0.6 g/dL (0.4-1.8)
[2016-12-15 16:00] VITALS: BP 98/54
--- NOTE | 2016-12-15 18:17 | NUR ---
MS RN: CLOSING NOTE PT A/OX3. ON ROOM AIR SATING AT 95%. NO DISTRESS NOTED. NO PAIN NOTED. ON CONTACT ISOLATION FOR LICE. ABLE TO AMBULATE WITH ASSIST. USES BSC. SKIN IS JAUNDICED WITH GENERALIZED RASH. IV ON RFA RUNNING NS AT 100ML/HR. LFA #22 SL. NO REDNESS NOTED. NO INFILTRATION. TOOK ALL MEDICATIONS ON TIME. NO ADVERSE REACTIONS NOTED. RESTING COMFORTABLY IN BED. CALL LIGHT WITHIN REACH.
[2016-12-15 20:00] VITALS: BP 85/45
--- NOTE | 2016-12-15 20:00 | NUR ---
MS/RN NOTES PATIENT ON ISOLATION CONTACT DUE TO HEAD LICE S/P TREATMENT . ALERT, ORIENTED X3, ABLE TO USE CALL LIGHTS FOR ASSISTANCE, USES BEDSIDE COMMODE, OBSERVE WEAK BUT COOPERATIVE, B/P LOW, W/ IV HYDRATION RUNNING. PROVIDE SIP OF WATER, AND OFFERED FOOD. ALERT, X2. ABLE TO VERBALIZE NEEDS. CALL LIGHTS WITHIN REACH AND DENIES PAIN. NO GUARDING AND NO GRIMACE OBSERVED. WILL CONTINUE TO MONITOR.
[2016-12-16] MEDS: ONDANSETRON HCL/PF 4 MG/2 ML VIAL IVP SCH ×4 (01:13→18:00)
[2016-12-16] MEDS: IV NS 0.9% 1,000 ML IV SCH ×3 (01:13→20:36)
[2016-12-16] MEDS: HYDROCODONE/APAP 5/325MG 1 EACH TABLET PO PRN ×3 (01:33→20:56)
--- NOTE | 2016-12-16 01:39 | NUR ---
ms/rn notes PATIENT REPORTED PAIN ON LEGS, WILL PROVIDED PRN MED, ON IV HYDRATION, PROVIDE FLUIDS, WILL CHECK PAIN EFFECTIVENESS.
[2016-12-16 05:38] VITALS: BP 94/54
--- NOTE | 2016-12-16 06:36 | NUR ---
MS/RN CLOSING NOTES PATIENT ALERT, ORIENTED X3, ON ISOLATION DUE TO LICE, S/P TX OF LICE SHAMPOO, REQUIRE ASISTANCE TO BSC. MONITORING/MGMT OF PAIN, ON IV HYDRATION , WITH SCHEDULED ZOFRAN GIVEN , COOPERATIVE TO CARE, OBSERVE WEAKNESS AND BLE SWOLLEN, OFF LOAD. WILL ENDORSE TO AM RN FOR GEOVANNY.
--- NOTE | 2016-12-16 07:25 | NUR ---
MS RN OPENING NOTES PATIENT IS RESTING IN BED IN NO APPARENT DISTRESS. BEDSIDE RAILS ARE UP X2. BED IS LOCKED AND LOWERED. CALL LIGHT IS WITHIN REACH. WILL CONTINUE TO MONITOR.
[2016-12-16 08:00] VITALS: BP 81/42
[2016-12-16] MEDS: RIFAXIMIN 200 MG TABLET PO SCH ×3 (09:00→18:05)
[2016-12-16] MEDS: PENTOXIFYLLINE 400 MG TABLET.SA PO SCH ×2 (09:18→18:04)
[2016-12-16] MEDS: FOLIC ACID 1 MG TABLET PO SCH (09:19)
[2016-12-16] MEDS: CYANOCOBALAMIN 100 MCG TABLET PO SCH (09:19)
[2016-12-16] MEDS: PANTOPRAZOLE 40 MG TABLET.DR PO SCH ×2 (09:19→20:36)
[2016-12-16] MEDS: LACTULOSE 10 G/15 ML UDC (PYXIS) PO SCH (09:23)
[2016-12-16 16:00] VITALS: BP 84/49
--- NOTE | 2016-12-16 18:52 | NUR ---
MS RN CLOSING NOTES PATIENT IS ALERT AND RESTING IN BED COMFORTABLY. IN NO APPARENT DISTRESS. BED IS LOCKED AND LOWERED. CALL LIGHT IS WITHIN REACH. SIDE RAILS ARE UP X2. WILL ENDORSE CARE TO MUSIC ORCHESTRATOR NURSE FOR GEOVANNY.
--- NOTE | 2016-12-16 19:41 | NUR ---
MS/RN OPENING NOTESPATIENT IN BED, AWAKE, ALERT, ASSISTED TO BSC BY SHINE WORKER. RESTING COMFORTABLY IN BED, CALL LIGHTS WITHIN REACH, B/P CHECK LOW , ON IV FLUIDS RUNNING AT 100 CC/HR. HYGIENE PREVENTION. CALL LIGHTS WITHIN REACH. OFFERED FLUIDS WILL CONTINUE TO MONITOR.
[2016-12-16 20:00] VITALS: BP 88/57
[2016-12-16 20:23] VITALS: BP 88/57
--- NOTE | 2016-12-16 20:56 | NUR ---
MS/RN NOTES PATIENT OBSERVED MOANING AND COMPLAINING OF PAIN IN ABDOMEN,NORCO 5-325MG PO TO BE GIVEN AND MONITRO PAIN EFFECTIVENESS.
[2016-12-16 22:17] VITALS: BP 105/52
--- NOTE | 2016-12-16 22:18 | NUR ---
ms/rn notes PATIENT OBSERVE MOANING, REPORTED PAIN 9/10 IN ABDOMEN, AMBIEN PO REQUEST FOR SLEEP M PAIN MONITORING AND INFORM MD FOR PATIENT CONDITION AND CONCERN
--- NOTE | 2016-12-16 22:25 | NUR ---
MS/RN NOTES PATIENT OBSERVE ASLEEP , AMBIEN WAS GIVEN RESTING COMFORTABLY IN BED, NO GUARDING OR GRIMACE OBSERVED. NO MORE MOANING.
[2016-12-17] MEDS: ONDANSETRON HCL/PF 4 MG/2 ML VIAL IVP SCH ×4 (00:14→17:37)
[2016-12-17] MEDS: IV NS 0.9% 1,000 ML IV SCH ×2 (05:42→16:50)
--- NOTE | 2016-12-17 06:31 | NUR ---
MS/RN NOTES PATIENT RESTING IN BED, MONITORING FOR ANY S/S OF DISCOMFORT, ATTEND TO NEEDS, PAIN MANAGEMENT MONITORING, ABLE TO SLEEP DURING THE NIGHT AND GAVE PAIN MEDICATION NEEDED, DENIES PAIN AT THIS TIME.ASSISTED AT ALL TIMES, INFORM PATIENT TO USE CALL LIGHTS, NOTED WEAKNESS AND REQUIRE EXTENSIVE ASSISTANCE.
--- NOTE | 2016-12-17 07:39 | NUR ---
MS RN: INITIAL NOTE RECEIVED PT A/OX3. NO DISTRESS NOTED. NO SOB NOTED. NO PAIN NOTED. ON BEDREST. ABLE TO AMBULATE WITH ASSISTANCE. USES BED SIDE COMMODE. SKIN IS JAUNDICED. HAS GENERALIZED RASH. LFA #22 RUNNING NS AT 100ML/HR. ON SOFT DIET. RESTING COMFORTABLY IN BED. CALL LIGHT WITHIN REACH.
[2016-12-17 08:00] VITALS: BP 95/67
[2016-12-17] MEDS: RIFAXIMIN 200 MG TABLET PO SCH ×3 (08:52→17:00)
[2016-12-17] MEDS: CYANOCOBALAMIN 100 MCG TABLET PO SCH (08:52)
[2016-12-17] MEDS: PANTOPRAZOLE 40 MG TABLET.DR PO SCH (08:53)
[2016-12-17] MEDS: LACTULOSE 10 G/15 ML UDC (PYXIS) PO SCH (08:53)
[2016-12-17] MEDS: FOLIC ACID 1 MG TABLET PO SCH (08:53)
[2016-12-17] MEDS: PENTOXIFYLLINE 400 MG TABLET.SA PO SCH ×2 (08:54→17:00)
--- NOTE | 2016-12-17 15:30 | NUR ---
PT DNR. WAS SUPPOSE TO BE TRANSFERRED TO HOSPICE CARE IN [facility] [place]. TRANSPORT STILL AWAITING APPROVAL TO TRANSFER IN THIS CONDITION. PT NO RESPONSIVE. BREATHING HEAVILY. ON 4L NC. SATING AT 94%. BP 75/52. PULSE 92.
--- NOTE | 2016-12-17 15:45 | NUR ---
IV FLUIDS ON HOLD DUE TO PT INABILITY TO BREATH. ON 4L NC SATING AT 94%.
[2016-12-17 16:00] VITALS: BP 79/50
--- NOTE | 2016-12-17 17:00 | NUR ---
PT STILL UNRESPONSIVE. NOT ABLE TO COMMUNICATE. UNABLE TO GIVE MEDS DUE TO PTS ALERTED MENTAL STATUS AND CHANGE OF CONDITION. AWAITING TRANSPORT REPLY FOR APPROVAL TO TRANSFER IN CONDITION. NOTIFIED MD MCNALLY. AWAITING MD REPLY AND NEW ORDERS. PT KEPT CLEAN AND DRY. TURNED AND REPOSITIONED Q2 HOUR. WILL CONTINUE TO MONITOR FOR ANY CHANGES.
--- NOTE | 2016-12-17 18:06 | NUR ---
PAGECleo MCNALLY. AWAITING RESPONSE AND NEW ORDERS.
--- NOTE | 2016-12-17 18:18 | NUR ---
PER MD AVALOSERIAN ORDER TO PLACE PT ON O2 MASK. NEW ORDER OF MORPHINE 1MG [id number] PRN. KEEP COMFORTABLE.
--- NOTE | 2016-12-17 18:21 | NUR ---
ALL ORDERS PER MD PLACED.
[2016-12-17] MEDS ORDERED: MORPHINE SULFATE INJ 10 MG/ML DISP.SYRIN IV PRN (18:30)
[2016-12-17] MEDS ORDERED: MORPHINE SULFATE INJ 2 MG/ML DISP.SYRIN IVP PRN (18:30)
--- NOTE | 2016-12-17 18:41 | NUR ---
MS RN: CLOSING NOTE PT A/OX2. UNRESPONSIVE. DNR. BEDREST. TOOK MORNING/ AFTERNOON MEDICATIONS ON TIME. WAS SCHEDULED TO TRANSFER TO [facility] FOR HOSPICE CARE. PT CONDITION CHANGED AND AWAITING FOR TRANSPORT TO APPROVE TO TRANSFER. STOPPED FLUIDS DUE TO SOB. INCREASE TO 4L NC. O2 SAT AT 95%. BP 70/54, PULSE 90. LFA #20. R UA #20 SL. NOTIFIED MD MCNALLY ABOUT CHANGE IN CONDITION. NEW ORDERS INCLUDE MORPHINE 1MG [id number] PRN, AND PLACE ON MASK AT 6-8L. KEEP COMFORTABLE. ALL ORDERED CARRIED OUT. PT O2 SAT IS 96% ON 6L MASK. SLIGHTLY DISTRESSED. TURNED AND REPOSITIONED Q2 HOURS. KEPT CLEAN AND DRY. UNABLE TO GIVE EVENING MEDICATIONS. FLUIDS ON HOLD DUE TO CONGESTION. RESTING IN BED. CALL LIGHT WITHIN REACH. WILL CONTINUE TO MONITOR.
--- NOTE | 2016-12-17 20:00 | NUR ---
RN NOTES RECEIVED RESIDENT IN BED, NOTED WITH DIFFICULTY BREATHING USING ACCESSORY MUSCLES. 02SAT 85-90% WITH ATTACHED TO 02 @5LPM VIA MASK. nOTED WITH LOW BP 66/51. PATIENT UNRESPONSIVE TO ANY STIMULI. EYES CLOSE. WILL CONTINUE TO MONITOR
--- NOTE | 2016-12-17 21:12 | NUR ---
RN NOTES NOTED PATIENT STOPPED BREATHING, WITH NO RISE AND FALL OF CHEST. NO VITAL SIGN APPRECIATED. UNRESPONSIVE TO ANY STIMULI. , EYE DILATED. CALLED CHARGE NURSE, DECLARED PATIENT'S @2109. REPORTED TO VAHE MALONE. POST MORTEM CARE INITIATED. ALL IV LINES DISCONTINUED. PUT IN A BODY BAG WITH ALL TAGS IN PLACE. CALLED ONE HAYDEE, SPOKE TO BUDDY AND REPORTED PATIENT'S .
== END 2016-12-17 21:10 | disposition expired | DRG 279 ==
LOC: ER 16:33 → MED 20:20
PROVIDERS: ADMIT Nurse Practitioner Acute Care; ATTEND Nurse Practitioner Acute Care
PROC: 0W9G3ZZ Drainage of Peritoneal Cavity, Percutaneous Approach (ICD-10-PCS; principal; 2016-11-26)
PROC: 30233N1 Transfusion of Nonautologous Red Blood Cells into Peripheral Vein, Percutaneous Approach (ICD-10-PCS; 2016-11-30)
DX: K72.90 Hepatic failure, unspecified without coma (principal); R65.11 Systemic inflammatory response syndrome (SIRS) of non-infectious origin with acute organ dysfunction; E43 Unspecified severe protein-calorie malnutrition; K83.1 Obstruction of bile duct; K76.6 Portal hypertension; D62 Acute posthemorrhagic anemia; K75.81 Nonalcoholic steatohepatitis (NASH); K51.00 Ulcerative (chronic) pancolitis without complications; K92.2 Gastrointestinal hemorrhage, unspecified; K85.20 Alcohol induced acute pancreatitis without necrosis or infection; N20.0 Calculus of kidney; Z66 Do not resuscitate; Z51.5 Encounter for palliative care; K70.31 Alcoholic cirrhosis of liver with ascites; E83.42 Hypomagnesemia; D53.1 Other megaloblastic anemias, not elsewhere classified; E87.6 Hypokalemia; Z59.0 Homelessness; K59.00 Constipation, unspecified; F31.9 Bipolar disorder, unspecified; F10.20 Alcohol dependence, uncomplicated; Y90.9 Presence of alcohol in blood, level not specified; B85.0 Pediculosis due to Pediculus humanus capitis; E53.8 Deficiency of other specified B group vitamins; I70.8 Atherosclerosis of other arteries; M06.9 Rheumatoid arthritis, unspecified; Z96.653 Presence of artificial knee joint, bilateral
CPT/HCPCS: 36415; 71010-TC; 74181-TC; 76705-TC; 76770-TC; 76942-TC; 80048-TC; 80061-TC; 80076-TC; 81000-TC; 82040-TC; 82105; 82140-TC; 82150-TC; 82247-TC; 82248-TC; 82728-TC; 82746; 82784; 82962-TC; 83540-TC; 83605-TC; 83690-TC; 83735-TC; 84100-TC; 84155; 84165; 84703-TC; 85025-TC; 85610-TC; 85730-TC; 86334; 86850-TC; 86921-TC; 87040-TC; 87045-TC; 87070-TC; 87081-TC; 87086-TC; 87177; 87209; 89051-TC; A4216; A4217; A4606; A9563; J0692; J0696; J1200; J1650; J1940; J2270; J2405; J2543; J3430; J3475; J3480; J3490; J7030; J7050; J7060; P9016-BL; P9047; Q9967; Z7610